=== PATIENT | female | born 1945 | race Caucasian/White ===

== ENCOUNTER 2016-09-08 09:09 | Outpatient (CLI) | payer MEDICARE, OTHER ==
[2011-05-02 06:36] VITALS: BMI 37.3
== END 2016-09-08 10:50 ==
LOC: D.MAMMO 09:09
DX: Z12.31 Encounter for screening mammogram for malignant neoplasm of breast (principal)

== ENCOUNTER → 2017-11-28 20:49 | Outpatient (CLI) | payer MEDICARE, OTHER ==
[2011-05-02 06:36] VITALS: BMI 37.3
== END | disposition home or self-care (01) ==
LOC: D.MAMMO 15:00
DX: Z12.31 Encounter for screening mammogram for malignant neoplasm of breast (principal)

== ENCOUNTER 2018-03-17 12:44 | Emergency (ER) | payer MEDICARE, OTHER ==
[2018-03-17 13:15] LABS: HEMATOCRIT 44.3 % (36.0-48.0); HEMOGLOBIN 14.5 g/dL (12-16); MCH 30.5 pg (26.0-34.0); MCHC 32.7 g/dL (31.0-37.0); MCV 93.1 fL (80.0-100.0); MEAN PLATELET VOLUME 10.6 fL (7.4-10.4); PLATELET COUNT 237 10x3/uL (130-400); RBC 4.76 10x6/uL (4.00-5.40); RDW 15.4 % (11.5-14.5); WBC 20.1 10x3/uL (4.8-10.8)
[2018-03-17 13:31] LABS: LYMPHOCYTES 15 % (15-50); MONOCYTES 5 % (2-11); NEUTROPHILS 80 % (40-80); PLATELET ESTIMATE NORMAL
[2018-03-17 13:33] LABS: ALBUMIN 3.4 g/dL (3.4-5.0); ALKALINE PHOSPHATASE 84 U/L (46-116); ALT (SGPT) 25 U/L (10-68); BILIRUBIN - TOTAL 0.55 mg/dL (0.2-1.3); CALC OSMOLALITY 283 mosm/kg (275-300); CALCIUM 8.8 mg/dL (8.5-10.1); CARBON DIOXIDE 34.4 mmol/L (21.0-32.0); CHLORIDE - SERUM 97 mmol/L (98-107); GLUCOSE 106 mg/dL (74-106); POTASSIUM - SERUM 4.1 mmol/L (3.5-5.1); PROTEIN - SERUM 7.2 g/dL (6.4-8.2); SODIUM 138 mmol/L (136-145); UREA NITROGEN 34 mg/dL (7-18); eGFR NON AFRICAN AMERICAN 57 mL/min (90-120)
[2018-03-17 13:45] LABS: CKMB 1.5 U/L (0.0-3.6); CREATINE KINASE 87 UL (21-215); PRO BNP 186 pg/mL (0-125); TROPONIN-I 0.016 ng/mL (0.000-0.060)
== END 2018-03-17 16:13 | disposition home or self-care (01) ==
LOC: D.ER 12:44
PROVIDERS: Family Medicine
DX: J20.9 Acute bronchitis, unspecified (principal); I10 Essential (primary) hypertension; R51 Headache; R07.9 Chest pain, unspecified; R05 Cough

== ENCOUNTER → 2018-05-21 17:53 | Outpatient (CLI) | payer MEDICARE, OTHER ==
[~2018-05-21 17:53] MED LIST: CALCIUM 600 +1 EAC3 PO; COZAAR100 MG PO; FISH OIL 1,0001 CA1 PO; FUROSEMIDE20 MG PO; HYDROCHLOROTHIA25 MG PO; HYDROCODON-ACE1 EA10 PO; K-TAB10 MEQ PO; LEVAQUIN750 MG PO; MOBIC7.5 MG PO; OMEPRAZOLE20 M1 PO; PROTONIX40 MG PO; PROZAC20 MG PO; VITAMIN D5000 UNIT PO; ZANAFLEX4 MG PO
[2018-05-22 09:56] VITALS: BMI 42.2
== END | disposition home or self-care (01) ==
LOC: CANPRECLI → D.OPS 17:53
DX: K21.0 Gastro-esophageal reflux disease with esophagitis (principal); R13.10 Dysphagia, unspecified; R10.9 Unspecified abdominal pain; K12.0 Recurrent oral aphthae; K29.70 Gastritis, unspecified, without bleeding

== ENCOUNTER → 2018-05-22 09:01 | Day surgery (SDC) | payer MEDICARE, OTHER ==
[~2018-05-22] VITALS: Ht 175.3 cm; Wt 129.5 kg
[2018-05-22 09:50] LABS: ANION GAP 10.8 mmol/L (8-16); CALCIUM 9.1 mg/dL (8.5-10.1); CARBON DIOXIDE 33.7 mmol/L (21.0-32.0); CREATININE - SERUM 1.1 mg/dL (0.6-1.3); POTASSIUM - SERUM 3.5 mmol/L (3.5-5.1)
[2018-05-22 09:52] LABS: HEMATOCRIT 36.9 % (36.0-48.0); MCH 29.6 pg (26.0-34.0); MCHC 32.5 g/dL (31.0-37.0); MCV 91.1 fL (80.0-100.0); MEAN PLATELET VOLUME 10.6 fL (7.4-10.4); RBC 4.05 10x6/uL (4.00-5.40); RDW 13.7 % (11.5-14.5); WBC 8.5 10x3/uL (4.8-10.8)
[2018-05-22 09:56] VITALS: BP 116/59; Ht 175.3 cm; Wt 129.5 kg
--- NOTE | 2018-05-22 11:59 | NUR ---
IV REMOVED WITH CATHALON INTACT. ALL DC INSTRUCTIONS GIVEN. VOICES UNDERSTANDING. ABLE TO EAT WITHOUT NAUSEA AND AMBULATED TO BATHROOM. FOLLOW UP APPOINTMENT GIVEN. VOICES NO OTHER NEEDS. NO S/S OF ACUTE DISTRESS NOTED. TAKEN OUT VIA W/C AND ASSISTED TO CAR WITH FAMILY. ADVISED TO CALL OR COME BACK IF ANY PROBLEMS.
--- NOTE | 2018-05-29 09:41 | OP ---
PATIENT NAME: RICHARD SOUZA MEDICAL RECORD: [id number] :43 LOCATION:[facility] ADMISSION DATE: SURGEON: MALENA JEWELL DO DATE OF OPERATION: 05/22/2018 PROCEDURE: EGD with biopsies. INDICATIONS FOR PROCEDURE: GERD, dysphagia, unspecified upper abdominal pain. SCOPE: Olympus video gastroscope. MEDICATIONS: Propofol 250 mg IV per anesthesia. ESTIMATED BLOOD LOSS: Minimal. COMPLICATIONS: None. FINDINGS AND DESCRIPTION OF PROCEDURE: Informed consent was given. The patient was made comfortable with the above medication. After reaching an adequate level of sedation by slow IV push, the patient was placed on her left side. The endoscope was advanced under direct visualization through the mouth to the second portion of the duodenum with ease. The upper, middle, and lower thirds of the esophagus appeared normal. Biopsies were taken in the middle third of the esophagus with cold forceps to submit for histopathology regarding the patient's noncardiac chest pain. At the GE junction, there was very mild evidence of LA class A reflux-induced esophagitis. The endoscope was advanced beyond the GE junction into the stomach and retroflexed to view the cardia, where a patulous lower esophageal sphincter was noted. The fundus and proximal body of the stomach appeared normal. As you approached the distal body as well as the antrum and prepyloric regions, there were patchy areas of erythema and granularity consistent with gastritis. Random cold forceps biopsies were taken to submit for histopathology and to rule out the presence of H. pylori. The endoscope was advanced beyond the pylorus into the duodenum. The duodenum appeared normal down to the second portion. The endoscope was withdrawn from the patient. The patient tolerated the procedure well and there were no complications. IMPRESSION: 1. LA class A reflux-induced esophagitis. 2. Patulous GE junction, which is likely contributing to the patient's continued reflux. 3. Patchy gastritis. PLAN AND RECOMMENDATIONS: 1. Discharge home when recovery parameters are met. 2. Follow up biopsy specimen results. 3. GERD diet and reflux precautions. 4. Continue current medications including Protonix 40 mg daily. 5. Follow up in GI clinic in approximately 3 weeks. If the patient is continuing to experience chest pain, consider barium esophagram and/or esophageal manometry to rule out esophageal spasms or hypertensive conditions involving the esophagus such as jackhammer or nutcracker esophagus. TRANSINT:[id number] Voice Confirmation ID: [id number] DOCUMENT ID: [id number] OPERATIVE REPORT [id number] RICHARD SOUZA,MALENA Verdin DO at 0941 CC: [id number] DICTATION DATE: 05/22/18 1046 SHIRRING TENDER: 05/22/18 1329 [facility] 05/22/18 [place] [id number]
== END | disposition home or self-care (01) ==
LOC: D.OPS 09:01
PROVIDERS: Anesthesiology
DX: K29.50 Unspecified chronic gastritis without bleeding (principal); K21.0 Gastro-esophageal reflux disease with esophagitis; Z01.812 Encounter for preprocedural laboratory examination

== ENCOUNTER 2018-08-19 12:03 | Inpatient (IN) | payer MEDICARE, OTHER ==
[~2018-08-19] VITALS: Ht 175.3 cm; Wt 141.8 kg
--- NOTE | ~2018-08-19 | HEMODYNAMI ---
PATIENT:RICHARD SOUZA MEDICAL RECORD: [id number] : 43 [id number] ADMISSION DATE: 08/19/18 Generatedon:08/20/201810:43 Patient name: RICHARD SOUZA Patient #: [id number] SSN: : 1945 Date of study: 08/20/2018 Page: Of Hemodynamic Procedure Report Patient Data Patient Demographics Procedure consent was obtained First Name: RICHARD Gender: Female Last Name: LIBBY : 1945 Middle Initial: A Age: 73 year(s) Patient #: [id number] Race: Unknown Additional ID: [id number] Contact details Address: [address] [place] [address] State: [place] City: [place] Zip code: [address] Admission Admission Data Admission Date: 08/19/2018 Admission Time: 13:51 Arrival Date: 08/20/2018 Arrival Time: 13:51 Admit Source: Emergency Insurance Payor: Medicare department Room #: D.2116 Height (in.): 68.9 BSA: 2.36 (m2) Height (cm.): 175 BMI: 40.82 (kg/m2) Weight (lbs.): 275.58 Weight (kg.): 125 Lab Results Lab Result Date: 08/20/2018 Lab Result Time: 0:00 Biochemistry Name Units Result Min Max BUN mg/dl 25 --(----)-* 7 18 Creatinine mg/dl 1.3 --(---*)-- 0.6 1.3 CBC Name Units Result Min Max Hemoglobin g/dl 12.7 -*(----)-- 13.5 17.5 Procedure Procedure Types Cath Procedure Diagnostic Procedure [facility] w/Coronaries Peripheral Cath Diagnostic Procedure Commercial Cleaner Peripheral Procedures Four Vessel Arteriogram Procedure Description Procedure Date Procedure Date: 08/20/2018 Procedure Start Time: 10:31 Procedure End Time: 10:42 Procedure Staff Name Function Yovany Faria MD Performing Physician Fatoumata PHILLIPS Monitor Leonid Hodges RN Nurse Afshin Hurd RT Scrub Mahendra Chao RN Licensed Loan Officer Procedure Data Cath Procedure Fluoroscopy Diagnostic fluoroscopy Total fluoroscopy Time: 1.8 time: 1.8 min min Diagnostic fluoroscopy Total fluoroscopy dose: 485 dose: 485 mGy mGy Contrast Material Contrast Material Type Amount (ml) Isovue 300 78 Entry Location Entry Primary Successful Side Size Upsize Upsize Entry Closure Succes sful Closure Location (Fr) 1 (Fr) 2 (Fr) Remarks Device Remarks Femoral Right 5 Fr Exoseal artery Estimated blood loss: 5 ml Diagnostic catheters Device Type Used For End Catheter Placement MULTIPACK JL 4.0 5Fr Left Coronary catheter Angiography MULTIPACK 3DRC 5Fr Right Coronary catheter Angiography MULTIPACK Pigtail 5 Fr Multi-vessel catheter Angiography Procedure Complications No complications Procedure Medications Medication Administration Route Dosage Oxygen etCO2 Nasal cannula 2 l/min Lidocaine 2% added to field 20 Heparin Flush Bag added to field 2 bags (1000units/500ml NS) 0.9% NaCl I.V. 100 ml/hr Versed I.V. 1 mg Fentanyl I.V. 50 mcg Versed I.V. 1 mg Fentanyl I.V. 50 mcg Versed I.V. 1 mg Fentanyl I.V. 50 mcg Hemodynamics Rest BSA: 2.36 (m2) HGB: 12.7 (g/dl) O2 Consumption: Estimated: 225.65 (ml/min) O2 Co nsumption indexed: Estimated:95.61 (ml/min/m) Heart Rate: 82 (bpm) Pressure Samples Time Site Value (mmHg) Purpose Heart Use Rate(bpm) 10:37 LV 150/20,24 Snapshot 76 Gradients Valve Time Site Site Mean SEP/DFP Peak To Heart Use 1 2 (mmHg) (sec/min) Peak Rate (mmHg) (bpm) Aortic 10:37 LV AO 76 Snapshots Pre Cath Intra NCS Post Cath Vital Signs Time Heart Resp SPO2 etCO2 NIBP (mmHg) Rhythm Pain Sedation Rate (ipm) (%) (mmHg) Status Level (bpm) 10:09:09 79 24 93 0 173/91(133) NSR 0 (11) 10(A) , No pain 10:13:24 75 12 93 29.2 171/85(113) NSR 0 (11) 10(A) , No pain 10:17:40 69 14 99 3.7 154/86(130) NSR 0 (11) 10(A) , No pain 10:21:52 68 19 100 3 167/81(112) NSR 0 (11) 10(A) , No pain 10:26:10 70 13 100 1.5 145/75(119) NSR 0 (11) 10(A) , No pain 10:30:20 68 11 95 8.2 138/78(99) NSR 0 (11) 9(A) , No pain 10:34:24 77 14 94 1.5 128/91(104) NSR 0 (11) 9(A) , No pain 10:39:21 78 12 98 9.7 169/89(122) NSR 0 (11) 10(A) , No pain Medications Time Medication Route Dose Verified Delivered Reason Notes Eff ectiveness by by 10:13:43 Oxygen etCO2 2 Yovany Buffie used for Nasal l/min [facility] drupal architect cannula 10:15:40 Lidocaine 2% added 20ml Yovany Yovany for local to vial [facility] anesthetic field MD ADLER 10:15:47 Heparin Flush added 2 Yovany Yovany used for Bag to bags [facility] procedure (1000units/500ml field MD ADLER NS) 10:16:16 0.9% NaCl I.V. 100 Yovany Buffie Per ml/hr Bienvenido Chao RN physician 10:22:54 Versed I.V. 1 mg Yovany Buffie for Bienvenido Chao RN sedation 10:23:00 Fentanyl I.V. 50 Yovany Buffie for mcg Bienvenido Chao RN sedation 10:26:55 Versed I.V. 1 mg Yovany Buffie for Bienvenido Chao RN sedation 10:26:59 Fentanyl I.V. 50 Yovany Buffie for mcg Bienvenido Chao RN sedation 10:30:30 Versed I.V. 1 mg Yovany Buffie for Bienvenido Chao RN sedation 10:30:35 Fentanyl I.V. 50 Yovany Buffie for mcg Bienvenido Chao RN sedation Procedure Log Time Note 9:35:42 Afshin Hurd RT(R) sent for patient. Start room use. 9:41:43 Time tracking: Regular hours (M-F 7:00 - 5:00) 9:41:47 Plan of Care:Hemodynamics will remain stable., Cardiac rhythm will remain stable., Comfort level will be maintained., Respiratory function will remain adequate., Patient/ family verbilizes understanding of procedure., Procedure tolerated without complication., Recovers from procedure without complications.. 9:59:39 Patient received from Med II to CCL 2 Alert and oriented. Tansferred to table in Supine position. 9:59:40 Warm blankets applied, and willem hugger turned on for patient comfort. 9:59:41 Correct patient and procedure confirmed by team. 9:59:42 Signed procedure consent form obtained from patient. 10:08:03 ECG and BP/O2 sat monitors applied to patient. 10:08:05 Baseline sample Acquired. 10:08:05 Vital chart was started 10:08:09 Rhythm: sinus rhythm 10:08:11 Full Disclosure recording started 10:08:16 Pre-procedure instructions explained to patient. 10:08:17 Pre-op teaching completed and patient verbalized understanding. 10:08:24 Family in patients room. 10:08:27 Patient NPO since Midnight. 10:08:58 H&P Date Dictated: 08/20/2018 New H&P dictated by physician.. 10:09:01 Is the patient allergic to Iodine/contrast media? No. 10:09:02 Was the patient premedicated? No 10:09:03 Is patient on blood thinner?No 10:09:04 Patient diabetic? No. 10:09:07 Previous problem with sedation/anesthesia? No ? 10:09:09 Snore? No 10:09:12 Sleep apnea? No 10:09:13 Deviated septum? No 10:09:14 Opens mouth fully? Yes 10:09:15 Sticks out tongue? Yes 10:09:16 Airway obstruction? No ? 10:09:18 Dentures? No ? 10:09:22 Pre procedure: right dorsailis pedis pulse 2+ Normal; easily identifiable; not easily obliterated 10:09:24 Pre procedure: left dorsailis pedis pulse 2+ Normal; easily identifiable; not easily obliterated 10:09:25 Patient pain scale 0/10 ?. 10:09:31 IV patent on arrival in left forearm with 0.9% NaCl at [facility]. 10:09:32 Lab results completed and on chart. 10:09:37 Right groin area was prepped with chlora-prep and draped in sterile fashion 10::38 Alarms reviewed by R. N. ::38 Sharps counted by scrub and verified by R.N. 10::43 Lab Result : Hemoglobin 12.7 g/dl 10::43 Lab Result : Creatinine 1.3 mg/dl 10::43 Lab Result : BUN 25 mg/dl 10:11:52 Admit Source: Emergency department 10:12:01 Patient Height : 68.9 inches 10:12:07 Patient Weight : 275.58 lbs 10:12:30 Insurance Payor : Medicare 10:12:32 Arrival Date: 08/20/2018 1:51:00 PM 10:13:43 Oxygen 2 l/min etCO2 Nasal cannula was administered by Mahendra Chao RN; used for procedure; 10:15:40 Lidocaine 2% 20ml vial added to field was administered by Yovany Faria MD; for local anesthetic; 10:15:47 Heparin Flush Bag (1000units/500ml NS) 2 bags added to field was administered by Yovany Faria MD; used for procedure; 10:16:16 0.9% NaCl 100 ml/hr I.V. was administered by Mahendra Chao RN; Per physician; 10:21:29 Physician arrived 10:21:29 --------ALL STOP TIME OUT------ 10:21:30 Final Timeout: patient, procedure, and site verified with staff and physician. All members of the team are in agreement. 10:21:32 Right groin site verified by team. 10:21:35 Maximum allowable Isovue 300 dose 300ml. Physician notified. (300ml for normal creatinines. For patients with creatinine of 1.7 or higher multiply weight(kg) x 5 divided by creatinine.) 10:21:40 Fire Safety Assessment: A--An alcohol-based skin anteseptic being used preoperatively., C--Open oxygen or nitrous oxide is being used., D--An ESU, laser, or fiber-optic light is being used. 10:21:45 Physical assessment completed. ASA score P 2 - A patient with mild systemic disease as per Yovany Faria MD. 10:21:49 Sedation plan: IV Moderate Sedation Medication:Versed, Fentanyl 10:21:53 Use device set Femoral Dx 10:21:54 ACIST Syringe (23756) opened to sterile field. 10:21:54 Bag Decanter (2002S) opened to sterile field. 10:21:55 Medline Cath Pack ([id number]) opened to sterile field. 10:21:58 DIAGNOSTIC WIRE .035 260cm J wire (421015) opened to sterile field. 10:21:59 ACIST Hand Control (21075) opened to sterile field. 10:22:00 ACIST Manifold (85663) opened to sterile field. 10:22:00 DIAGNOSTIC Multipack 5Fr catheter set (HO9920) opened to sterile field. 10:22:00 Tegaderm 4 x 4 (1626W) opened to sterile field. 10:22:01 SHEATH 5FR Tom Bean (NHH726) opened to sterile field. 10:22:54 Versed 1 mg I.V. was administered by Mahendra Chao RN; for sedation; 10:23:00 Fentanyl 50 mcg I.V. was administered by Mahendra Chao RN; for sedation; 10:23:21 Zero performed for pressure channel P1 10:26:55 Versed 1 mg I.V. was administered by Mahendra Chao RN; for sedation; 10:26:59 Fentanyl 50 mcg I.V. was administered by Mahendra Chao RN; for sedation; 10:30:30 Versed 1 mg I.V. was administered by Mahendra Chao RN; for sedation; 10:30:35 Fentanyl 50 mcg I.V. was administered by Mahendra Chao RN; for sedation; 10:31:16 Procedure started. 10:31:21 Local anesthetic to right femoral artery with Lidocaine 2% by Yovany Faria MD.INITIAL ACCESS ONLY 10:31:46 A 5 Fr sheath was inserted into the Right Femoral artery 10:32:01 A MULTIPACK JL 4.0 5Fr catheter was advanced over the wire and used for Left Coronary Angiography. 10:32:54 LCA angiography performed. 10:32:57 Injector settings: Ml/sec: 3, Volume: 69, 10:33:39 Catheter removed. 10:33:46 A MULTIPACK 3DRC 5Fr catheter was advanced over the wire and used for Right Coronary Angiography. 10:34:17 RCA angiography performed. 10:34:19 Injector settings: Ml/sec: 3, Volume: 6, 10:35:01 Bilateral carotid angiography performed. 10:35:29 Injector settings: Ml/sec: 4, Volume: 8, 10:37:11 Catheter removed. 10:37:15 A MULTIPACK Pigtail 5 Fr catheter was advanced over the wire and used for Multi-vessel Angiography. 10:37:39 LV hemodynamics recorded. 10:37:56 EF : 55 % 10:37:58 Catheter removed. 10:38:00 EXOSEAL 5Fr (EX500) opened to sterile field. 10:38:07 Sheath removed intact; hemostasis achieved with Exoseal to the Right Femoral artery. 10:38:56 Procedure ended.(Physican Out) 10:39:33 Fluoroscopy time 01.80 minutes. 10:39:37 Fluoroscopy dose: 485 mGy 10:39:37 Flurop Dose total: 485 10:39:43 Contrast amount:Isovue 300 78ml. 10:41:40 Sharps counted by scrub and verified by R.N. 10:41:42 Insertion/operative site no bleeding no hematoma. 10:41:45 Post-op/insertion site Right Femoral artery dressed using a 4 x 4 and Tegaderm. 10:41:50 Post procedure rhythm: unchanged. 10:41:52 Estimated blood loss: 5 ml 10:41:54 Post procedure instruction explained to patient.Patient verbalizes understanding. 10:41:54 Patient needs reinforcement of post procedure teaching. 10:42:11 Procedure and supply charges have been captured, reviewed, submitted and are correct. 10:42:17 Procedure Complication : No complications 10:42:19 Vital chart was stopped 10:42:19 See physician's report for complete and final results. 10:42:[address] [facility] II. 10:42:24 Patient transfered to Med II with Stretcher. 10:42:26 Procedure ended. 10:42:26 Full Disclosure recording stopped 10:42:30 End room use (Document Last) Device Usage Item Name Manufacture Quantity Catalog Hospital Part Current Minimal L ot# / Number Charge Number Stock Stock Serial# Code ACIST Acist 1 07958 937441 658127 119799 20 Syringe NexWave Solutions (44410) Systems Inc Bag Microtek 1 278506 11778 458290 5 Decanter Medical Inc. () Medline Medline 1 [id number] 074409 79794 729781 5 Cath Pack ([id number]) DIAGNOSTIC St Anjum 1 854152 444871 147292 598112 30 WIRE .035 260cm J wire (704187) ACIST Hand Acist 1 10034 836541 683247 715890 5 Control Medical (85766) Systems Inc ACIST Acist 1 89953 804658 749410 792982 5 Manifold Medical (87629) Systems Inc DIAGNOSTIC Cardinal 1 DG9290 436199 38089 553812 30 Multipack Health 5Fr catheter set ([id number]) Tegaderm 4 3M 1 1626W 888024 977018 829178 5 x 4 (1626W) SHEATH 5FR Terumo 1 EXO591 792605 876049 903347 5 Tom Bean (WCV249) MULTIPACK Cardinal 1 107782 5 JL 4.0 5Fr Health catheter MULTIPACK Cardinal 1 308074 5 3DRC 5Fr Health catheter MULTIPACK Cardinal 1 035911 5 Pigtail 5 Health Fr catheter EXOSEAL 5Fr Cardinal 1 EX500 785832 540080 463861 10 (EX500) Health Signature Audit [place] Stage Time Signature Unsigned Intra-Procedure 08/20/2018 Fatoumata Salmeron 10:43:30 AM RT(R) Signatures Monitor : Fatoumata Salmeron RT Signature : Date : Time : [address] [address]
--- NOTE | 2018-08-19 12:18 | NUR ---
[facility] WHERE PATIENT WAS BEING SEEN FOR LEFT EYE PAIN, CONJUNCTIVITIS. REPORTS SHE BEGAN HAVING CHEST PAIN AROUND 0430 THIS MORNING, SENT TO ED FOR ELEVATED TROPONIN. CM, BPM, AND PULSE OX MONITOR PLACED ON PATIENT AT TIME OF ARRIVAL TO ROOM. PT ALERT AND ORIENTED X 4, SPEECH CLEAR, NO ACUTE DISTRESS NOTED AT THIS TIME. PT'S FAMILY PRESENT AT BEDSIDE. WILL CONTINUE TO MONITOR FOR CHANGES.
[2018-08-19 12:42] LABS: HEMATOCRIT 38.4 % (36.0-48.0); HEMOGLOBIN 12.7 g/dL (12-16); LYMPHOCYTES 24.4 % (15-50); MCH 29.1 pg (26.0-34.0); MCHC 33.1 g/dL (31.0-37.0); MCV 88.1 fL (80.0-100.0); MEAN PLATELET VOLUME 9.9 fL (7.4-10.4); NEUTROPHILS 68.1 % (40-80); RBC 4.36 10x6/uL (4.00-5.40); RDW 14.8 % (11.5-14.5); WBC 9.5 10x3/uL (4.8-10.8)
[2018-08-19 12:46] LABS: PLATELET COUNT 193 10x3/uL (130-400)
[2018-08-19 12:58] LABS: ALBUMIN 3.9 g/dL (3.4-5.0); ALKALINE PHOSPHATASE 70 U/L (46-116); ALT (SGPT) 17 U/L (10-68); BILIRUBIN - TOTAL 0.53 mg/dL (0.2-1.3); CALC OSMOLALITY 282 mosm/kg (275-300); CALCIUM 9.5 mg/dL (8.5-10.1); CARBON DIOXIDE 27.4 mmol/L (21.0-32.0); CHLORIDE - SERUM 100 mmol/L (98-107); CREATININE - SERUM 1.3 mg/dL (0.6-1.3); GLUCOSE 101 mg/dL (74-106); POTASSIUM - SERUM 4.1 mmol/L (3.5-5.1); PROTEIN - SERUM 7.2 g/dL (6.4-8.2); SODIUM 140 mmol/L (136-145); UREA NITROGEN 25 mg/dL (7-18); eGFR NON AFRICAN AMERICAN 42 mL/min (90-120)
[2018-08-19 13:13] LABS: CKMB 1.6 U/L (0.0-3.6); CREATINE KINASE 71 UL (21-215); MAGNESIUM - SERUM 2.1 mg/dL (1.8-2.4); PRO BNP 722 pg/mL (0-125)
[2018-08-19 13:16] LABS: TROPONIN-I 0.613 ng/mL (0.000-0.060)
[2018-08-19 13:25] VITALS: BP 132/60
[2018-08-19 16:00] VITALS: BP 134/72
[2018-08-19 17:00] VITALS: BP 130/69
--- NOTE | 2018-08-19 17:13 | NUR ---
REPORT CALLED TO JULIETA FAIRCHILD AT THIS TIME. WAS INFORMED THAT THE ROOM WAS NOT CLEAN AND PATIENT WAS NOT ABLE TO BE BROUGHT TO MED 2 AT THIS TIME. JULIETA FAIRCHILD REPORTS SHE WAS CALL WHENEVER ROOM WAS AVAILABLE. PT IN NO ACUTE DISTRESS AT THIS TIME, VSS. WILL CONTINUE TO MONITOR FOR CHANGES. Y
[2018-08-19 17:14] LABS: CKMB 1.9 U/L (0.0-3.6); CREATINE KINASE 70 UL (21-215); TROPONIN-I 0.881 ng/mL (0.000-0.060)
[2018-08-19] MEDS ORDERED: BENTYL10 MG PO (18:13)
[2018-08-19] MEDS ORDERED: GAS-X125 M1 PO (18:15)
[2018-08-19] MEDS ORDERED: MAG-OX 400 MG400 MG PO (18:16)
--- NOTE | 2018-08-19 19:42 | NUR ---
RESUMING PATIENT CARE. PATIENT IS ALERT AND ORIENTED. RESPIRATIONS ARE EVEN AND UNLABORED. NO S/S OF DISTRESS. NO C/O PAIN. DENIES NEEDS. FAMILY AT BEDSIDE. CALL LIGHT WITHIN REACH. WILL CPOC.
[2018-08-19 20:00] VITALS: BP 146/91
[2018-08-19 23:44] LABS: CKMB 1.7 U/L (0.0-3.6); CREATINE KINASE 79 UL (21-215)
[2018-08-19 23:50] LABS: TROPONIN-I 0.776 ng/mL (0.000-0.060)
[2018-08-20] VITALS: BP 134/72
[2018-08-20 04:00] VITALS: BP 141/79
[2018-08-20 06:56] LABS: ANION GAP 11.7 mmol/L (8-16); CALCIUM 8.7 mg/dL (8.5-10.1); CARBON DIOXIDE 29.4 mmol/L (21.0-32.0); CHOL - HDL RATIO 4.3 ratio (2.3-4.1); CREATININE - SERUM 1.2 mg/dL (0.6-1.3); LDL-HDL RATIO 2.8 ratio (1.5-3.5); POTASSIUM - SERUM 4.1 mmol/L (3.5-5.1)
[2018-08-20 07:36] LABS: BASOPHILS 0.4 % (0-2); EOSINOPHILS 2.8 % (0-7); HEMATOCRIT 36.2 % (36.0-48.0); IMMATURE GRANULOCYTES 0.3 % (0-5); LYMPHOCYTES 36.9 % (15-50); MCH 29.2 pg (26.0-34.0); MCHC 33.1 g/dL (31.0-37.0); MCV 88.1 fL (80.0-100.0); MEAN PLATELET VOLUME 11.4 fL (7.4-10.4); MONOCYTES 9.2 % (2-11); NEUTROPHILS 50.4 % (40-80); PLATELET COUNT 186 10x3/uL (130-400); RBC 4.11 10x6/uL (4.00-5.40); RDW 15.1 % (11.5-14.5); WBC 9.2 10x3/uL (4.8-10.8)
[2018-08-20 08:00] VITALS: BP 139/75
[2018-08-20 12:00] VITALS: BP 142/72
--- NOTE | 2018-08-20 12:26 | OP ---
PATIENT NAME: RICHARD SOUZA MEDICAL RECORD: [id number] :43 LOCATION:D.M2 D.2116 ADMISSION DATE:08/19/18 SURGEON: CHRISTIANO TOLENTINO MD DATE OF OPERATION: 08/20/2018 PROCEDURE: Left heart catheterization, selective coronary angiography, plus 4-vessel arteriography, right femoral artery approach. CATHETERS: A 5-Nepali sheath, 5/4 left and right Sonia, 5/4 pig. The procedure was well tolerated. The patient returned to white, sheath removed. ExoSeal device placed. FINDINGS: Left ventriculography in 30-degree RUFFIN view: Normal wall motion, normal systolic function. No focal wall motion abnormality is noted. CORONARY ANATOMY: LEFT MAIN: Left main is smooth-walled vessel, free of disease. LAD: Smooth-walled vessel, free of disease. CIRCUMFLEX: Smooth-walled vessel, free of disease. RIGHT CORONARY ARTERY: Smooth-walled vessel, free of disease. FOUR-VESSEL ARTERIOGRAPHY: Four-vessel arteriography was performed secondary to amaurosis fugax type symptomatology in conjunction with slow healing pathology. RIGHT: 1. Right common carotid was selectively engaged, is a smooth-walled vessel, free of disease. 2. Right internal carotid is smooth-walled vessel, free of disease. 3. Right external carotid is smooth-walled, free of disease. LEFT: 1. Left common carotid was selectively engaged, is a smooth-walled vessel, free of disease. 2. Left internal carotid artery is a smooth-walled vessel, free of disease. 3. Left external carotid is a smooth-walled vessel, free of disease. IMPRESSION: Negative 4-vessel arteriography, no evidence of flow obstructive coronary artery disease, normal left ventricular function. TRANSINT:[id number] Voice Confirmation ID: [id number] DOCUMENT ID: [id number] CHRISTIANO TOLENTINO MD at 1226 CC: [id number] DICTATION DATE: 08/20/18 1045 NET SOFTWARE DEVELOPER: 08/20/18 1136 [place] [address]
[2018-08-20 16:37] VITALS: BP 139/78
--- NOTE | 2018-08-20 19:44 | NUR ---
RESUMING PATIENT CARE. PATIENT IS ALERT AND ORIENTED, RESTING COMFORTABLY IN BED. RESPIRATIONS ARE EVEN AND UNLABORED. NO S/S OF DISTRESS. NO C/O PAIN. CALL LIGHT WITHIN REACH. WILL CPOC.
[2018-08-20 20:00] VITALS: BP 127/59
[2018-08-21 00:18] VITALS: BP 124/70
[2018-08-21 04:34] VITALS: BP 114/55
[2018-08-21 06:51] LABS: BASOPHILS 0.5 % (0-2); EOSINOPHILS 2.7 % (0-7); HEMATOCRIT 35.2 % (36.0-48.0); HEMOGLOBIN 11.2 g/dL (12-16); IMMATURE GRANULOCYTES 0.1 % (0-5); LYMPHOCYTES 30.2 % (15-50); MCH 28.6 pg (26.0-34.0); MCHC 31.8 g/dL (31.0-37.0); MCV 89.8 fL (80.0-100.0); MEAN PLATELET VOLUME 10.5 fL (7.4-10.4); MONOCYTES 10.1 % (2-11); NEUTROPHILS 56.4 % (40-80); PLATELET COUNT 186 10x3/uL (130-400); RBC 3.92 10x6/uL (4.00-5.40); RDW 15.2 % (11.5-14.5); WBC 8.5 10x3/uL (4.8-10.8)
[2018-08-21 07:30] LABS: ALBUMIN 3.3 g/dL (3.4-5.0); ANION GAP 10.7 mmol/L (8-16); BILIRUBIN - TOTAL 0.41 mg/dL (0.2-1.3); CARBON DIOXIDE 29.1 mmol/L (21.0-32.0); CREATININE - SERUM 1.2 mg/dL (0.6-1.3); POTASSIUM - SERUM 3.8 mmol/L (3.5-5.1); PROTEIN - SERUM 6.6 g/dL (6.4-8.2)
[2018-08-21 07:41] VITALS: BP 139/71
--- NOTE | 2018-08-21 07:51 | NUR ---
LEAVING FOR CTA BY W/C. WILL CONT. PLAN OF CARE.
[2018-08-21 08:55] LABS: ERYTHROCYTE SEDIMENTATION RATE 10 mm/hr (0-30)
[2018-08-21 08:57] LABS: APTT 20.6 SECONDS (22.8-39.4)
[2018-08-21 08:58] LABS: INR 1.12 (0.85-1.17); PROTIME 13.9 SECONDS (11.6-15.0)
--- NOTE | 2018-08-21 09:05 | NUR ---
LAB CALLED WITH CR D-DIMER. DR ASHBY CALLED WITH POS PE. NEW ORDERS GIVEN. WILL CONT. PLAN OF CARE.
[2018-08-21 09:18] VITALS: BMI 45.9
[2018-08-21 11:36] VITALS: BP 141/71
[2018-08-21 15:28] VITALS: BP 95/46
--- NOTE | 2018-08-21 17:16 | MORECARE ---
CASE MANAGEMENT DISCHARGE SUMMARY PATIENT: RICHARD SOUZA UNIT: [id number] ADM DATE: 08/21/18 AGE: 73 : 44 SEX: F ROOM/BED: D.4054 AUTHOR: PAM,DOC PHYSICIAN: REFERRING PHYSICIAN: SANKET DELGADO MD DATE OF SERVICE: 08/21/18 Discharge Plan Patient Name: RICHARD SOUZA Facility: [facility]:[place] : 1945 Planned Disposition: Home Anticipated Discharge Date: Discharge Date: Expected LOS: Initial Reviewer: [email or web address] Initial Review Date: 08/19/2018 Generated: 08/21/18 6:16 pm Comments DCP- Discharge Planning Updated by [email or web address]: Jayjay Matos on 08/21/18 4:[address] Patient Name: RICHARD SOUZA Admission Status: ER Accout number: [id number] Admission Date: 08-21-2018 : 1945 Admission Diagnosis: Attending: ORLANDO DELGADO Current LOS: 1 Anticipated DC Date: Planned Disposition: Home Primary Insurance: MEDICARE A & B Discharge Planning Comments: CM MET WITH PTAND PT'S FRIEND IN ROOM TO DISCUSS DISCHARGE PLANNING AND NEEDS. RICHARD SOUZA provided verbal consent to discuss current and ongoing needs with/in the presence of: FRIEND, LILIAM, PT'S SUNDAY DATA BASE DESIGN ANALYST. PT REPORTS LIVING AT HOME INDEPENDENTLY AND ALONE. PT HAS A CANE AND WALKER WITH BRAKES AND SEAT WITH NO MEDICAL EQUIPMENT PROVIDER PREFERNECE. PT HAS NO OUTSIDE SERVICES ASSISTING IN THE HOME. CM DISCUSSED AVAILABILITY OF HOME HEALTH, REHAB SERVICES AND MEDICAL EQUIPMENT. PT REPORTS UNKNOWN DISCHARGE NEEDS, THINKS SHE MIGHT NEED OXYGEN AT DISCHARGE. CM EXPLAINED THAT PT WILL BE TESTED IF NECESSARY AND CM WILL SET UP DAY BEFORE OR DAY OF DISCHARGE. PT REPORTS PLAN TO DISCHARGE HOME ALONE, REPORTS HER DAUGHTER WILL PICK HER UP FOR DISCHARGE HOME. PT REPORTS PLAN TO RETURN HOME ALONE AT DISCHARGE, DAUGHTER TO TRANSPORT. IF PT NEEDS OXYGEN, SHE HAS NO MEDICAL EQUIPMENT PROVIDER PREFERENCE. CM TO FOLLOW AND ASSIST IF NECESSARY. Spice Room Worker: Jayjay Matos DCPIA - Discharge Planning Initial Assessment Updated by [email or web address]: Jayjay Matos on 08/21/18 5:10 pm * Is the patient Alert and Oriented? Yes * How many steps to enter\exit or inside your home? * PCP GEORGE WARD AT DR. BOLAND'S OFFICE * [facility] [place] * Preadmission Environment Home Alone * ADLs Independent * Equipment Cane Rolling Walker * Other Equipment WALKER WITH BRAKES AND SEAT NO MEDICAL EQUIPMENT PROVIDER PREFERENCE * List name and contact numbers for known caregivers / representatives who currently or will assist patient after discharge: FLOWER GOODMAN, DTR, * Verbal permission to speak to the caregivers and representatives has been obtained from the patient. Yes * Community resources currently utilized None * Please name any agencies selected above. none * Additional services required to return to the preadmission environment? No * Can the patient safely return to the preadmission environment? Yes * Has this patient been hospitalized within the prior 30 days at any hospital? No Patient Name: RICHARD SOUZA Page [phone] at 1716 All edits/amendments must be made on the electronic document DICTATION DATE: 08/21/181714 CERTIFIED REGISTERED NURSE PRACTITIONER: ETTA 08/21/181714 RPT#: [id number] DC DATE: STATUS: ADM IN [facility] [address] [place] [address] END OF REPORT
--- NOTE | 2018-08-21 19:45 | NUR ---
RESUMING PATIENT CARE. PATIENT IS ALERT AND ORIENTED. RESTING COMFORTABLY IN BED. RESPIRATIONS ARE EVEN AND UNLABORED. NO S/S OF DISTRESS. NO C/O PAIN. DENIES NEEDS. FAMILY AT BEDSIDE. CALL LIGHT WITHIN REACH. WILL CPOC.
[2018-08-21 20:00] VITALS: BP 129/59
[2018-08-22 00:03] VITALS: BP 119/61
[2018-08-22 04:00] VITALS: BP 115/56
[2018-08-22 05:53] LABS: BASOPHILS 0.4 % (0-2); HEMATOCRIT 33.2 % (36.0-48.0); HEMOGLOBIN 10.5 g/dL (12-16); IMMATURE GRANULOCYTES 0.3 % (0-5); LYMPHOCYTES 32.5 % (15-50); MCH 28.1 pg (26.0-34.0); MCHC 31.6 g/dL (31.0-37.0); MCV 88.8 fL (80.0-100.0); MONOCYTES 7.8 % (2-11); PLATELET COUNT 176 10x3/uL (130-400); RBC 3.74 10x6/uL (4.00-5.40); RDW 15.1 % (11.5-14.5); WBC 9.3 10x3/uL (4.8-10.8)
[2018-08-22 06:12] LABS: ALBUMIN 3.2 g/dL (3.4-5.0); ANION GAP 12.1 mmol/L (8-16); BILIRUBIN - TOTAL 0.46 mg/dL (0.2-1.3); CALCIUM 8.7 mg/dL (8.5-10.1); CARBON DIOXIDE 29.5 mmol/L (21.0-32.0); CREATININE - SERUM 1.4 mg/dL (0.6-1.3); POTASSIUM - SERUM 3.6 mmol/L (3.5-5.1)
[2018-08-22 09:37] VITALS: BP 106/63
--- NOTE | 2018-08-22 11:57 | NUR ---
Nutrition follow-up: Diet: low soidum PO intake 75,75,25% of meals 08/21/18 Labs reviewed Wt: 313# PO intake good at most meals RDN following.
[2018-08-22 12:25] VITALS: BP 128/62
--- NOTE | 2018-08-22 13:00 | NUR ---
20 GUAGE PIV INSERTED TO R.FA X1 STICK, HEPARIN INFUSING VIA R.FA. NO CURRENT NEEDS.
[2018-08-22 15:12] LABS: ACLA - IGG AB <9 GPL U/mL (0-14); ACLA - IGM AB <9 MPL U/mL (0-12)
[2018-08-22 18:07] LABS: ANA REFLEX - DIRECT Negative (Negative)
--- NOTE | 2018-08-22 19:33 | NUR ---
RESUMING PATIENT CARE. PATIENT ALERT AND ORIENTED. RESTING COMFORTABLY IN BED. RESPIRATIONS ARE EVEN AND UNLABORED. CALL LIGHT WITHIN REACH. WILL CPOC.
[2018-08-22 20:00] VITALS: BP 150/76
[2018-08-23] VITALS: BP 120/70
[2018-08-23 04:00] VITALS: BP 105/55
[2018-08-23 04:09] LABS: PROTEIN S - FREE 110 % (57-157); PROTEIN S - FREE 114 % (57-157); PROTEIN S - FUNCTIONAL 98 % (63-140); PROTEIN S - TOTAL 88 % (60-150); PROTEIN S - TOTAL 92 % (60-150)
[2018-08-23 06:27] LABS: BASOPHILS 0.3 % (0-2); EOSINOPHILS 3.3 % (0-7); HEMATOCRIT 32.3 % (36.0-48.0); HEMOGLOBIN 10.5 g/dL (12-16); IMMATURE GRANULOCYTES 0.4 % (0-5); LYMPHOCYTES 34.6 % (15-50); MCH 28.9 pg (26.0-34.0); MCHC 32.5 g/dL (31.0-37.0); MEAN PLATELET VOLUME 10.5 fL (7.4-10.4); NEUTROPHILS 54.4 % (40-80); PLATELET COUNT 176 10x3/uL (130-400); RBC 3.63 10x6/uL (4.00-5.40); RDW 15.1 % (11.5-14.5); WBC 9.2 10x3/uL (4.8-10.8)
[2018-08-23 06:51] LABS: ANION GAP 11.4 mmol/L (8-16); BILIRUBIN - TOTAL 0.49 mg/dL (0.2-1.3); CALCIUM 8.5 mg/dL (8.5-10.1); CARBON DIOXIDE 29.1 mmol/L (21.0-32.0); CREATININE - SERUM 1.2 mg/dL (0.6-1.3); POTASSIUM - SERUM 3.5 mmol/L (3.5-5.1)
[2018-08-23 07:46] VITALS: BP 128/56
--- NOTE | 2018-08-23 09:20 | NUR ---
TELEMETRY SB. RESP UL ON 02 2L NC. HEPRIN GTT DCD ORDERED. ELIQUIS STARTED. CALL LIGHT IN REACH. WILL CONT. PLAN OF CARE.
[2018-08-23 09:35] VITALS: Ht 175.3 cm; Wt 141.8 kg
[2018-08-23 11:33] VITALS: BP 124/52
[2018-08-23 15:10] VITALS: BP 121/67
[2018-08-23 15:12] LABS: LUPUS - INTERPRETATION Comment: (()); LUPUS - THROMBIN NEUT 21.3 sec (0.0-23.0); LUPUS - THROMBIN TIME >150.0 sec (0.0-23.0); LUPUS - THROMBIN TIME MIX 127.1 sec (0.0-23.0); LUPUS - dRVVT 40.8 sec (0.0-47.0)
--- NOTE | 2018-08-23 17:19 | MORECARE ---
CASE MANAGEMENT DISCHARGE SUMMARY PATIENT: RICHARD SOUZA UNIT: [id number] ADM DATE: 08/21/18 AGE: 73 : 44 SEX: F ROOM/BED: D.2116 AUTHOR: PAM,DOC PHYSICIAN: REFERRING PHYSICIAN: SANKET DELGADO MD DATE OF SERVICE: 08/23/18 Discharge Plan Patient Name: RICHARD SOUZA Facility: [facility]:[place] : 1945 Planned Disposition: Home Anticipated Discharge Date: Discharge Date: Expected LOS: Initial Reviewer: [id number] Initial Review Date: 08/19/2018 Generated: 08/23/18 6:19 pm Comments DCP- Discharge Planning Updated by [id number]: Jayjay Matos on 08/23/18 4:[address] Patient Name: RICHARD SOUZA Encounter No: [id number] : 1945 Primary Insurance: MEDICARE A & B Anticipated DC Date: Planned Disposition: Home DCP follow-up note: CM RECEIVED REQUEST TO SEE PT IN ROOM 2115, MET WITH PT AND DAUGHTER JENNA GOODMAN. PT PROVIDED PERMISSION TO TALK ABOUT HER CARE AND DISCHARGE PLANNING WITH JENNA REPORTING JENNA TO BE PT'S POWER OF CIRCUS TRAIN SUPERVISOR IF NEEDED. PT WANTS TO LET HER CHOICE FOR MEDICAL EQUIPMENT BE KNOWN IF SHE NEEDS OXYGEN AND PROVIDED CHOICE OF [facility] [place], [facility] [place], [place] [phone]. PT WILL NEED OXYGEN TESTING WITHIN 48 HOURS OF DISCHARGE HOME. IF PT NEEDS HOME OXYGEN, CM TO ARRANGE WITH [facility] IN [place]. CM TO FOLLOW AND ASSIST NEEDED. Jayjay Matos, CASE MANAGEMENT DCP- Discharge Planning Updated by [id number]: Jayjay Matos on 08/21/18 4:[address] Patient Name: RICHARD SOUZA Admission Status: ER Accout number: [id number] Admission Date: 08-21-2018 : 1945 Admission Diagnosis: Attending: ORLANDO DELGADO Current LOS: 1 Anticipated DC Date: Planned Disposition: Home Primary Insurance: MEDICARE A & B Discharge Planning Comments: CM MET WITH PTAND PT'S FRIEND IN ROOM TO DISCUSS DISCHARGE PLANNING AND NEEDS. RICHARD SOUZA provided verbal consent to discuss current and ongoing needs with/in the presence of: FRIEND, LILIAM, PT'S SUNDAY SECURITY SHIFT SUPERVISOR. PT REPORTS LIVING AT HOME INDEPENDENTLY AND ALONE. PT HAS A CANE AND WALKER WITH BRAKES AND SEAT WITH NO MEDICAL EQUIPMENT PROVIDER PREFERNECE. PT HAS NO OUTSIDE SERVICES ASSISTING IN THE HOME. CM DISCUSSED AVAILABILITY OF HOME HEALTH, REHAB SERVICES AND MEDICAL EQUIPMENT. PT REPORTS UNKNOWN DISCHARGE NEEDS, THINKS SHE MIGHT NEED OXYGEN AT DISCHARGE. CM EXPLAINED THAT PT WILL BE TESTED IF NECESSARY AND CM WILL SET UP DAY BEFORE OR DAY OF DISCHARGE. PT REPORTS PLAN TO DISCHARGE HOME ALONE, REPORTS HER DAUGHTER WILL PICK HER UP FOR DISCHARGE HOME. PT REPORTS PLAN TO RETURN HOME ALONE AT DISCHARGE, DAUGHTER TO TRANSPORT. IF PT NEEDS OXYGEN, SHE HAS NO MEDICAL EQUIPMENT PROVIDER PREFERENCE. CM TO FOLLOW AND ASSIST IF NECESSARY. Sanding Machine Tender: Jayjay Matos ORPIA - Discharge Planning Initial Assessment Updated by [id number]: Jayjay Matos on 08/21/18 5:10 pm * Is the patient Alert and Oriented? Yes * How many steps to enter\exit or inside your home? * PCP GEORGE WARD AT DR. BOLAND'S OFFICE * Pharmacy [facility] IN [place] * Preadmission Environment Home Alone * ADLs Independent * Equipment Cane Rolling Walker * Other Equipment WALKER WITH BRAKES AND SEAT NO MEDICAL EQUIPMENT PROVIDER PREFERENCE * List name and contact numbers for known caregivers / representatives who currently or will assist patient after discharge: FLOWER GOODMAN, DTR, * Verbal permission to speak to the caregivers and representatives has been obtained from the patient. Yes * Community resources currently utilized None * Please name any agencies selected above. none * Additional services required to return to the preadmission environment? No * Can the patient safely return to the preadmission environment? Yes * Has this patient been hospitalized within the prior 30 days at any hospital? No Coverage Notice Reviewer: [id number] Balaji Matos Notice Issued Date-Time: 08/23/2018 14:40 Notice Type: IM Discharge Notice Notice Delivered To: Family Member Relationship to Patient: Daughter Athlete Manager Name: JUAN ANTONIO GOODMAN Delivery Method: HAND - Hand Delivered Lien Days: Prior Verbal Notification: Recipient Understood Notice: Yes Recipient Signature: Yes Med Rec Note Co-signed by Attending: Coverage Notice Comment: Reviewer: [id number] Matos Notice Issued Date-Time: 08/23/2018 14:40 Notice Type: Patient Choice Letter Notice Delivered To: Family Member Relationship to Patient: Daughter Athlete Manager Name: JENNA GOODMAN Delivery Method: HAND - Hand Delivered Lien Days: Prior Verbal Notification: Recipient Understood Notice: Yes Recipient Signature: Yes Med Rec Note Co-signed by Attending: Coverage Notice Comment: [facility] [place], [place] [phone] Last DP export: 08/21/18 4:16 p Patient Name: RICHARD SOUZA Page [id number] at 1719 All edits/amendments must be made on the electronic document DICTATION DATE: 08/23/181717 NURSING PROGRAM CHAIR: ETTA 08/23/181717 RPT#: [id number] DC DATE: STATUS: ADM IN [facility] [address] [place] [address] END OF REPORT
[2018-08-23 20:00] VITALS: BP 130/61
--- NOTE | 2018-08-23 20:00 | NUR ---
INITIAL ROUNDS AND ASSESSMENT COMPLETED. PAIN MEDICATION GIVEN PER PT REQUEST. OTHER BEDTIME MED GIVEN. EYE DROPS AT BEDSIDE FOR PT ADMINISTRATION. O2 @ 2L/NC IN PLACE WITH NONLABORED RESPIRATIONS. SALINE LOCK TO RFA. MONITOR AND CPOC.
[2018-08-24] VITALS: BP 106/48
[2018-08-24 04:25] VITALS: BP 128/56
[2018-08-24 04:51] LABS: BASOPHILS 0.3 % (0-2); EOSINOPHILS 3.5 % (0-7); HEMATOCRIT 30.9 % (36.0-48.0); IMMATURE GRANULOCYTES 0.5 % (0-5); LYMPHOCYTES 33.8 % (15-50); MCH 28.7 pg (26.0-34.0); MCHC 32.4 g/dL (31.0-37.0); MCV 88.5 fL (80.0-100.0); MEAN PLATELET VOLUME 10.4 fL (7.4-10.4); MONOCYTES 8.3 % (2-11); NEUTROPHILS 53.6 % (40-80); PLATELET COUNT 185 10x3/uL (130-400); RBC 3.49 10x6/uL (4.00-5.40); WBC 8.7 10x3/uL (4.8-10.8)
[2018-08-24 05:30] LABS: ALBUMIN 2.9 g/dL (3.4-5.0); ANION GAP 11.3 mmol/L (8-16); BILIRUBIN - TOTAL 0.57 mg/dL (0.2-1.3); CALCIUM 8.6 mg/dL (8.5-10.1); CARBON DIOXIDE 30.8 mmol/L (21.0-32.0); CREATININE - SERUM 1.4 mg/dL (0.6-1.3)
[2018-08-24 05:31] LABS: POTASSIUM - SERUM 4.1 mmol/L (3.5-5.1)
--- NOTE | 2018-08-24 07:30 | NUR ---
RECEIVED PT IN BED AAOX4 RESP UNLABORED DENIES ANY NEEDS AT THIS TIME
[2018-08-24 08:53] VITALS: BP 127/61
[2018-08-24 12:09] LABS: ALPHA FETOPROTEIN -(TUMOR MRK) 5.1 ng/mL (0.0-8.3); CA125 7.3 U/mL (0.0-38.1); CEA 2.8 ng/mL (0.0-4.7)
[2018-08-24 13:11] VITALS: BP 130/63
[2018-08-24 16:45] VITALS: BP 113/89
--- NOTE | 2018-08-24 19:14 | NUR ---
RECIEVED UP IN BED WITH EYES OPEN AND TV ON. ALERT AND ORIENTED X4. O2 @ 2 LITERS PER N/C. TELEMETRY IN PLACE. DENIES ANY NEEDS AT THIS TIME.
[2018-08-24 20:00] VITALS: BP 126/67
[2018-08-25 00:30] VITALS: BP 111/55
[2018-08-25 00:40] LABS: HEMATOCRIT 30.1 % (36.0-48.0); HEMOGLOBIN 9.8 g/dL (12-16); MCH 28.6 pg (26.0-34.0); MCHC 32.6 g/dL (31.0-37.0); MCV 87.8 fL (80.0-100.0); MEAN PLATELET VOLUME 10.5 fL (7.4-10.4); RBC 3.43 10x6/uL (4.00-5.40); RDW 14.8 % (11.5-14.5); WBC 9.8 10x3/uL (4.8-10.8)
[2018-08-25 04:30] VITALS: BP 126/60
[2018-08-25 05:00] LABS: BASOPHILS 0.5 % (0-2); EOSINOPHILS 3.5 % (0-7); HEMATOCRIT 32.6 % (36.0-48.0); HEMOGLOBIN 10.6 g/dL (12-16); IMMATURE GRANULOCYTES 0.5 % (0-5); LYMPHOCYTES 29.9 % (15-50); MCH 28.8 pg (26.0-34.0); MCHC 32.5 g/dL (31.0-37.0); MCV 88.6 fL (80.0-100.0); MEAN PLATELET VOLUME 10.1 fL (7.4-10.4); MONOCYTES 7.5 % (2-11); NEUTROPHILS 58.1 % (40-80); PLATELET COUNT 192 10x3/uL (130-400); RBC 3.68 10x6/uL (4.00-5.40); RDW 14.9 % (11.5-14.5); WBC 8.8 10x3/uL (4.8-10.8)
[2018-08-25 05:09] LABS: ALBUMIN 3.2 g/dL (3.4-5.0); ANION GAP 8.6 mmol/L (8-16); BILIRUBIN - TOTAL 0.62 mg/dL (0.2-1.3); CALCIUM 8.9 mg/dL (8.5-10.1); CARBON DIOXIDE 33.3 mmol/L (21.0-32.0); CREATININE - SERUM 1.3 mg/dL (0.6-1.3); POTASSIUM - SERUM 3.9 mmol/L (3.5-5.1); PROTEIN - SERUM 6.4 g/dL (6.4-8.2)
--- NOTE | 2018-08-25 07:30 | NUR ---
RECIEVED PT IN BED AAOX4 RESP UNLABORED SKIN W/D PT REQUEST PAIN PILL WITH MORNING MEDS
[2018-08-25 08:07] VITALS: BP 142/71
[2018-08-25 11:47] VITALS: BP 132/69
--- NOTE | 2018-08-25 15:04 | MORECARE ---
CASE MANAGEMENT DISCHARGE SUMMARY PATIENT: RICHARD SOUZA UNIT: [id number] ADM DATE: 08/21/18 AGE: 73 : 44 SEX: F ROOM/BED: D.2116 AUTHOR: PAM,DOC PHYSICIAN: REFERRING PHYSICIAN: SANKET DELGADO MD DATE OF SERVICE: 08/25/18 Discharge Plan Patient Name: RICHARD SOUZA Facility: [facility]:[place] : 1945 Planned Disposition: Home Anticipated Discharge Date: Discharge Date: Expected LOS: Initial Reviewer: [id number] Initial Review Date: 08/19/2018 Generated: 08/25/18 4:04 pm Comments DCP- Discharge Planning Updated by [id number]: Senait Harrington on 08/25/18 1:[address] Patient Name: RICHARD SOUZA Admission Status: ER Accout number: [id number] Admission Date: 08-21-2018 : 1945 Admission Diagnosis:CHEST PAIN, UNSPECIFIED Attending: ORLANDO DELGADO Current LOS: 4 Anticipated DC Date: Planned Disposition: Home Primary Insurance: MEDICARE A & B Discharge Planning Comments: PT HAS REHAB EVAL. PENDING.. [place]IPE FORM FOR HOME O2 SIGNED FOR [facility] AT [phone] IS CONTACT IF PT NEEDS O2 AT DC Fast Food Shift Supervisor: Senait Harrington DCP- Discharge Planning Updated by [email or web address]: Jayjay Matos on 08/23/18 4:[address] Patient Name: RICHARD SOUZA Encounter No: [id number] : 1945 Primary Insurance: MEDICARE A & B Anticipated DC Date: Planned Disposition: Home DCP follow-up note: CM RECEIVED REQUEST TO SEE PT IN ROOM 6, MET WITH PT AND DAUGHTER JENNA GOODMAN. PT PROVIDED PERMISSION TO TALK ABOUT HER CARE AND DISCHARGE PLANNING WITH JENNA REPORTING JENNA TO BE PT'S POWER OF DIRECTOR TELEVISION IF NEEDED. PT WANTS TO LET HER CHOICE FOR MEDICAL EQUIPMENT BE KNOWN IF SHE NEEDS OXYGEN AND PROVIDED CHOICE OF [facility] [place], [place] [phone]. PT WILL NEED OXYGEN TESTING WITHIN 48 HOURS OF DISCHARGE HOME. IF PT NEEDS HOME OXYGEN, CM TO ARRANGE WITH [facility] IN [place]. CM TO FOLLOW AND ASSIST NEEDED. Jayjay Matos, CASE MANAGEMENT DCP- Discharge Planning Updated by [id number]: Jayjay Matos on 08/21/18 4:[address] Patient Name: RICHARD SOUZA Admission Status: ER Accout number: [id number] Admission Date: 08-21-2018 : 1945 Admission Diagnosis: Attending: ORLANDO DELGADO Current LOS: 1 Anticipated DC Date: Planned Disposition: Home Primary Insurance: MEDICARE A & B Discharge Planning Comments: CM MET WITH PTAND PT'S FRIEND IN ROOM TO DISCUSS DISCHARGE PLANNING AND NEEDS. RICHARD SOUZA provided verbal consent to discuss current and ongoing needs with/in the presence of: FRIEND, LILIAM, PT'S SUNDAY TALLOW REFINER. PT REPORTS LIVING AT HOME INDEPENDENTLY AND ALONE. PT HAS A CANE AND WALKER WITH BRAKES AND SEAT WITH NO MEDICAL EQUIPMENT PROVIDER PREFERNECE. PT HAS NO OUTSIDE SERVICES ASSISTING IN THE HOME. CM DISCUSSED AVAILABILITY OF HOME HEALTH, REHAB SERVICES AND MEDICAL EQUIPMENT. PT REPORTS UNKNOWN DISCHARGE NEEDS, THINKS SHE MIGHT NEED OXYGEN AT DISCHARGE. CM EXPLAINED THAT PT WILL BE TESTED IF NECESSARY AND CM WILL SET UP DAY BEFORE OR DAY OF DISCHARGE. PT REPORTS PLAN TO DISCHARGE HOME ALONE, REPORTS HER DAUGHTER WILL PICK HER UP FOR DISCHARGE HOME. PT REPORTS PLAN TO RETURN HOME ALONE AT DISCHARGE, DAUGHTER TO TRANSPORT. IF PT NEEDS OXYGEN, SHE HAS NO MEDICAL EQUIPMENT PROVIDER PREFERENCE. CM TO FOLLOW AND ASSIST IF NECESSARY. Fast Food Shift Supervisor: Jayjay Matos DCPIA - Discharge Planning Initial Assessment Updated by [id number]: Jayjay Matos on 08/21/18 5:10 pm * Is the patient Alert and Oriented? Yes * How many steps to enter\exit or inside your home? * PCP GEORGE WARD AT DR. BOLAND'S OFFICE * Pharmacy [facility] IN [place] * Preadmission Environment Home Alone * ADLs Independent * Equipment Cane Rolling Walker * Other Equipment WALKER WITH BRAKES AND SEAT NO MEDICAL EQUIPMENT PROVIDER PREFERENCE * List name and contact numbers for known caregivers / representatives who currently or will assist patient after discharge: FLOWER GOODMAN DTR, * Verbal permission to speak to the caregivers and representatives has been obtained from the patient. Yes * Community resources currently utilized None * Please name any agencies selected above. none * Additional services required to return to the preadmission environment? No * Can the patient safely return to the preadmission environment? Yes * Has this patient been hospitalized within the prior 30 days at any hospital? No Coverage Notice Reviewer: [id number] Matos Notice Issued Date-Time: 08/23/2018 14:40 Notice Type: IM Discharge Notice Notice Delivered To: Family Member Relationship to Patient: Daughter Director Advanced Name: JUAN ANTONIO GOODMAN Delivery Method: HAND - Hand Delivered Lien Days: Prior Verbal Notification: Recipient Understood Notice: Yes Recipient Signature: Yes Med Rec Note Co-signed by Attending: Coverage Notice Comment: Reviewer: [id number] Matos Notice Issued Date-Time: 08/23/2018 14:40 Notice Type: Patient Choice Letter Notice Delivered To: Family Member Relationship to Patient: Daughter Director Advanced Name: JENNA GOODMAN Delivery Method: HAND - Hand Delivered Lien Days: Prior Verbal Notification: Recipient Understood Notice: Yes Recipient Signature: Yes Med Rec Note Co-signed by Attending: Coverage Notice Comment: [facility], [place] [phone] Last DP export: 08/23/18 4:19 p Patient Name: RICHARD SOUZA Page 28531 at 1504 All edits/amendments must be made on the electronic document DICTATION DATE: 08/25/181503 FURNITURE UPHOLSTERY MECHANIC: ETTA 08/25/18 150 RPT#: [id number] DC DATE: STATUS: ADM IN [facility] [address] [place] [address] END OF REPORT
[2018-08-25 15:42] VITALS: BP 145/73
--- NOTE | 2018-08-25 19:43 | NUR ---
RECIEVED UP IN BED WITH EYES OPEN AND TV ON. ALERT AND ORIENTED X4. UP AD ALEXANDER TO B/R. IV TO LEFT FA.. O2@ 2 LITERS PER N/C. TELEMETRY UIN PLACE. DENIES ANY NEEDS AT THIS TIME.
[2018-08-25 20:00] VITALS: BP 132/57
[2018-08-26] VITALS: BP 114/58
[2018-08-26 00:34] LABS: HEMATOCRIT 31.3 % (36.0-48.0); HEMOGLOBIN 10.1 g/dL (12-16); MCH 28.6 pg (26.0-34.0); MCHC 32.3 g/dL (31.0-37.0); MCV 88.7 fL (80.0-100.0); MEAN PLATELET VOLUME 10.4 fL (7.4-10.4); RBC 3.53 10x6/uL (4.00-5.40); RDW 15.2 % (11.5-14.5); WBC 9.8 10x3/uL (4.8-10.8)
[2018-08-26 04:00] VITALS: BP 123/52
[2018-08-26 05:34] LABS: BASOPHILS 0.4 % (0-2); EOSINOPHILS 3.3 % (0-7); HEMATOCRIT 30.7 % (36.0-48.0); HEMOGLOBIN 9.9 g/dL (12-16); IMMATURE GRANULOCYTES 0.4 % (0-5); LYMPHOCYTES 30.6 % (15-50); MCH 28.4 pg (26.0-34.0); MCHC 32.2 g/dL (31.0-37.0); MCV 88.2 fL (80.0-100.0); MEAN PLATELET VOLUME 9.7 fL (7.4-10.4); MONOCYTES 9.3 % (2-11); PLATELET COUNT 174 10x3/uL (130-400); RBC 3.48 10x6/uL (4.00-5.40); RDW 15.1 % (11.5-14.5); WBC 8.2 10x3/uL (4.8-10.8)
[2018-08-26 05:38] LABS: ANION GAP 8.8 mmol/L (8-16); CALCIUM 8.8 mg/dL (8.5-10.1); CARBON DIOXIDE 31.2 mmol/L (21.0-32.0); CREATININE - SERUM 1.3 mg/dL (0.6-1.3); MAGNESIUM - SERUM 1.9 mg/dL (1.8-2.4); PHOSPHOROUS 4.6 mg/dL (2.5-4.9)
[2018-08-26 07:56] VITALS: BP 144/68
--- NOTE | 2018-08-26 08:59 | NUR ---
REHAB PRESCREENING Rehab referral received and chart reviewed. Ms. Maria ambulated 500 feet with PT and was signed off to nursing. She does not meet admission criteria. Thank you for this referral! Yahaira Loaiza, AGENT CONTRACT CLERK Rehab PD
--- NOTE | 2018-08-26 10:06 | EC ---
PATIENT:RICHARD SOUZA DATE OF SERVICE: 08/19/18 SEX: F MEDICAL RECORD: [id number] DATE OF : [birth year] LOCATION:D.M2 D.211 AGE OF PATIENT: 73 ADMISSION DATE: 08/21/18 REFERRING PHYSICIAN: INTERPRETING PHYSICIAN: CHRISTIANO TOLENTINO MD ECHOCARDIOGRAM REPORT ECHO CHARGES 4 ECHO COMPLETE Date: 08/20/18 CLINICAL DIAGNOSIS: CHEST PAIN ECHOCARDIOGRAPHIC MEASUREMENTS (adult normal given) AC root (d.<3.7cm) 3.0 cm LV Septum d (<1.2 cm> 1.4 cm Valve Excursion 1.6 cm LV Septum (systole) 1.8 cm Left Atria (s.<4.0cm> 3.4 cm LVPW d(<1.2cm) 1.3 cm RV (d.<2.3cm) 4.5 cm LVPW (sytole) 1.9 cm LV diastole(<5.6CM) 4.9 cm MV E-F(>70mm/sec) cm LV systole 3.2 cm LVOT Diameter 2.1 cm MV exc.(>10mm) 1.8 cm Est.ejection fraction (50-75%) % DOPPLER: LVIT cm/sec A 71.0 cm/sec E 44.0 cm/sec LA cm/sec RVSP 43 mmHg LVOT 84 cm/sec AOP1/2T m/s Asc. Ao 128 cm/sec RVOT 62 cm/sec RA cm/sec PA 90 cm/sec AV Gradient Peak 6.51 mmHg AV Mean 3.67 mmHg AV Area 2.2 cm MV Gradient Peak 2.59 mmHg MV Mean 1.08 mmHg MV Area cm COMMENTS: Group Home Supervisor: 2 LEANNE LUTZ Railroad Car Repairman: 3 Dr. Jernigan TAPE# PACS Pericardial Effusion N DATE OF SERVICE: Adequate 2-D echo, color-flow and spectral Doppler, and M-mode. LVH is present. LV internal dimensions are normal. Wall motion is normally. EF is greater than 55%. Aortic valve is tricuspid. No evidence of stenosis by Doppler interrogation. Left atrium is normal at 3.4 cm. Mitral valve shows no prolapse. Trace MR. Right-sided chambers are grossly normal. Trace TR. TRANSINT:[id number] Voice Confirmation ID: [id number] DOCUMENT ID: [id number] ECHOCARDIOGRAM REPORT [id number] RICHARD SOUZA GREGORY A MD at 1006 CC: [id number] DICTATION DATE: 08/20/18 1150 TIMBER BUYER: 08/20/18 1234 ADM IN [facility] [address] [place] [id number]
--- NOTE | 2018-08-26 10:13 | NUR ---
TELEMETRY SR. RESP UL ON . UD CONT. PER RT. WILL CONT. PLAN OF CARE.
[2018-08-26 11:41] VITALS: BP 125/53
[2018-08-26 16:21] VITALS: BP 120/59
[2018-08-26 18:07] LABS: FACTOR II DNA ANALYSIS Negative (())
--- NOTE | 2018-08-26 19:14 | NUR ---
RECIEVED LAYING IN BED WITH EYES OPEN AND TV ON. ALERT AND ORIENTED X4. UP AD ALEXANDER TO B/R. O2 @ 2 LITERS PER N/C. IV TO LEFT FA SL. TELEMETRY IN PLACE. DENIES ANY NEEDS AT THIS TIME.
[2018-08-26 20:00] VITALS: BP 122/59
[2018-08-27] VITALS: BP 106/47
[2018-08-27 04:00] VITALS: BP 131/65
[2018-08-27 08:13] VITALS: BP 136/62
--- NOTE | 2018-08-27 10:14 | NUR ---
UP AMBULATING HALLWAY WITH RT FOR 02 ALICIA TEST. WILL CONT. PLAN OF CARE.
--- NOTE | 2018-08-27 11:07 | MORECARE ---
CASE MANAGEMENT DISCHARGE SUMMARY PATIENT: RICHARD SOUZA UNIT: [id number] ADM DATE: 08/21/18 AGE: 73 : 44 SEX: F ROOM/BED: D.2116 AUTHOR: PAM,DOC PHYSICIAN: REFERRING PHYSICIAN: SANKET DELGADO MD DATE OF SERVICE: 08/27/18 Discharge Plan Patient Name: RICHARD SOUZA Facility: [facility]:[place] : 1945 Planned Disposition: Home with Home Health Anticipated Discharge Date: 08/27/18 Discharge Date: Expected LOS: 6 Initial Reviewer: [id number] Initial Review Date: 08/19/2018 Generated: 08/27/18 12:07 pm Comments DCP- Discharge Planning Updated by [email or web address]: Senait Harrington on 08/25/18 1:[address] Patient Name: RICHARD SOUZA Admission Status: ER Accout number: [id number] Admission Date: 08-21-2018 : 1945 Admission Diagnosis:CHEST PAIN, UNSPECIFIED Attending: ORLANDO DELGADO Current LOS: 4 Anticipated DC Date: Planned Disposition: Home Primary Insurance: MEDICARE A & B Discharge Planning Comments: PT HAS REHAB EVAL. PENDING.. FELIPE FORM FOR HOME O2 SIGNED FOR [facility] AT [phone] IS CONTACT IF PT NEEDS O2 AT DC Grounds Foreman: Senait Harrington DCP- Discharge Planning Updated by [id number]: Jayjay Matos on 08/23/18 4:[address] Patient Name: RICHARD SOUZA Encounter No: [id number] : 1945 Primary Insurance: MEDICARE A & B Anticipated DC Date: Planned Disposition: Home DCP follow-up note: CM RECEIVED REQUEST TO SEE PT IN ROOM 6, MET WITH PT AND DAUGHTER JENNA GOODMAN. PT PROVIDED PERMISSION TO TALK ABOUT HER CARE AND DISCHARGE PLANNING WITH JENNA REPORTING JENNA TO BE PT'S POWER OF WEIGHT CALCULATOR IF NEEDED. PT WANTS TO LET HER CHOICE FOR MEDICAL EQUIPMENT BE KNOWN IF SHE NEEDS OXYGEN AND PROVIDED CHOICE OF [facility], [place] [phone]. PT WILL NEED OXYGEN TESTING WITHIN 48 HOURS OF DISCHARGE HOME. IF PT NEEDS HOME OXYGEN, CM TO ARRANGE WITH [facility] IN [place]. CM TO FOLLOW AND ASSIST NEEDED. Jayjay Matos, CASE MANAGEMENT DCP- Discharge Planning Updated by [id number]: Jayjay Matos on 08/21/18 4:[address] Patient Name: RICHARD SOUZA Admission Status: ER Accout number: [id number] Admission Date: 08-21-2018 : 1945 Admission Diagnosis: Attending: ORLANDO DELGADO Current LOS: 1 Anticipated DC Date: Planned Disposition: Home Primary Insurance: MEDICARE A & B Discharge Planning Comments: CM MET WITH PTAND PT'S FRIEND IN ROOM TO DISCUSS DISCHARGE PLANNING AND NEEDS. RICHARD SOUZA provided verbal consent to discuss current and ongoing needs with/in the presence of: FRIEND, LILIAM, PT'S SUNDAY CNS. PT REPORTS LIVING AT HOME INDEPENDENTLY AND ALONE. PT HAS A CANE AND WALKER WITH BRAKES AND SEAT WITH NO MEDICAL EQUIPMENT PROVIDER PREFERNECE. PT HAS NO OUTSIDE SERVICES ASSISTING IN THE HOME. CM DISCUSSED AVAILABILITY OF HOME HEALTH, REHAB SERVICES AND MEDICAL EQUIPMENT. PT REPORTS UNKNOWN DISCHARGE NEEDS, THINKS SHE MIGHT NEED OXYGEN AT DISCHARGE. CM EXPLAINED THAT PT WILL BE TESTED IF NECESSARY AND CM WILL SET UP DAY BEFORE OR DAY OF DISCHARGE. PT REPORTS PLAN TO DISCHARGE HOME ALONE, REPORTS HER DAUGHTER WILL PICK HER UP FOR DISCHARGE HOME. PT REPORTS PLAN TO RETURN HOME ALONE AT DISCHARGE, DAUGHTER TO TRANSPORT. IF PT NEEDS OXYGEN, SHE HAS NO MEDICAL EQUIPMENT PROVIDER PREFERENCE. CM TO FOLLOW AND ASSIST IF NECESSARY. Grounds Foreman: Jayjay Matos DCPIA - Discharge Planning Initial Assessment Updated by [id number]: Jayjay Matos on 08/21/18 5:10 pm * Is the patient Alert and Oriented? Yes * How many steps to enter\exit or inside your home? * PCP GEORGE WARD AT DR. BOLAND'S OFFICE * Pharmacy [facility] IN [place] * Preadmission Environment Home Alone * ADLs Independent * Equipment Cane Rolling Walker * Other Equipment WALKER WITH BRAKES AND SEAT NO MEDICAL EQUIPMENT PROVIDER PREFERENCE * List name and contact numbers for known caregivers / representatives who currently or will assist patient after discharge: FLOWER GOODMAN DTR, * Verbal permission to speak to the caregivers and representatives has been obtained from the patient. Yes * Community resources currently utilized None * Please name any agencies selected above. none * Additional services required to return to the preadmission environment? No * Can the patient safely return to the preadmission environment? Yes * Has this patient been hospitalized within the prior 30 days at any hospital? No External Providers External Provider: Sumaya Lincoln Contact Date: 08/27/2018 Service Request Date: Service Type: Resolution: Reviewer: Comments: Coverage Notice Reviewer: [email or web address] Matos Notice Issued Date-Time: 08/23/2018 14:40 Notice Type: IM Discharge Notice Notice Delivered To: Family Member Relationship to Patient: Daughter Phlebotomy Lab Assistant Name: JUAN ANTONIO GOODMAN Delivery Method: HAND - Hand Delivered Lien Days: Prior Verbal Notification: Recipient Understood Notice: Yes Recipient Signature: Yes Med Rec Note Co-signed by Attending: Coverage Notice Comment: Reviewer: DASHA Matos Notice Issued Date-Time: 08/23/2018 14:40 Notice Type: Patient Choice Letter Notice Delivered To: Family Member Relationship to Patient: Daughter Phlebotomy Lab Assistant Name: JENNA GOODMAN Delivery Method: HAND - Hand Delivered Lien Days: Prior Verbal Notification: Recipient Understood Notice: Yes Recipient Signature: Yes Med Rec Note Co-signed by Attending: Coverage Notice Comment: [facility] [place], [place] [phone] Last DP export: 08/25/18 2:04 p Patient Name: RICHARD SOUZA Page 31605 at 1107 All edits/amendments must be made on the electronic document DICTATION DATE: 08/27/18 1106 INTERNET SECURITY SPECIALIST: ETTA 08/27/18 1106 RPT#: [id number] DC DATE: STATUS: ADM IN [facility] [address] [place] [address] END OF REPORT
--- NOTE | 2018-08-27 11:32 | MORECARE ---
CASE MANAGEMENT DISCHARGE SUMMARY PATIENT: RICHARD SOUZA UNIT: [id number] ADM DATE: 08/21/18 AGE: 73 : 44 SEX: F ROOM/BED: D.2116 AUTHOR: PAM,DOC PHYSICIAN: REFERRING PHYSICIAN: SANKET DELGADO MD DATE OF SERVICE: 08/27/18 Discharge Plan Patient Name: RICHARD SOUZA Facility: [facility]:[place] : 1945 Planned Disposition: Home with Home Health Anticipated Discharge Date: 08/27/18 Discharge Date: Expected LOS: 6 Initial Reviewer: [id number] Initial Review Date: 08/19/2018 Generated: 08/27/18 12:32 pm Comments DCP- Discharge Planning Updated by [email or web address]: Senait Harrington on 08/25/18 1:[address] Patient Name: RICHARD SOUZA Admission Status: ER Accout number: [id number] Admission Date: 08-21-2018 : 1945 Admission Diagnosis:CHEST PAIN, UNSPECIFIED Attending: ORLANDO DELGADO Current LOS: 4 Anticipated DC Date: Planned Disposition: Home Primary Insurance: MEDICARE A & B Discharge Planning Comments: PT HAS REHAB EVAL. PENDING.. FELIPE FORM FOR HOME O2 SIGNED FOR [facility] [place] AT [phone] IS CONTACT IF PT NEEDS O2 AT DC Statistical Machine Mechanic: Senait Harrington DCP- Discharge Planning Updated by [email or web address]: Jayjay Matos on 08/23/18 4:[address] Patient Name: RICHARD SOUZA Encounter No: [id number] : 1945 Primary Insurance: MEDICARE A & B Anticipated DC Date: Planned Disposition: Home DCP follow-up note: CM RECEIVED REQUEST TO SEE PT IN ROOM 6, MET WITH PT AND DAUGHTER JENNA GOODMAN. PT PROVIDED PERMISSION TO TALK ABOUT HER CARE AND DISCHARGE PLANNING WITH JENNA REPORTING JENNA TO BE PT'S POWER OF COVERAGE SPECIALIST IF NEEDED. PT WANTS TO LET HER CHOICE FOR MEDICAL EQUIPMENT BE KNOWN IF SHE NEEDS OXYGEN AND PROVIDED CHOICE OF [facility], CELL [phone]. PT WILL NEED OXYGEN TESTING WITHIN 48 HOURS OF DISCHARGE HOME. IF PT NEEDS HOME OXYGEN, CM TO ARRANGE WITH [facility] IN [place]. CM TO FOLLOW AND ASSIST NEEDED. Jayjay Matos, CASE MANAGEMENT DCP- Discharge Planning Updated by [id number]: Jayjay Matos on 08/21/18 4:[address] Patient Name: RICHARD SOUZA Admission Status: ER Accout number: [id number] Admission Date: 08-21-2018 : 1945 Admission Diagnosis: Attending: ORLANDO DELGADO Current LOS: 1 Anticipated DC Date: Planned Disposition: Home Primary Insurance: MEDICARE A & B Discharge Planning Comments: CM MET WITH PTAND PT'S FRIEND IN ROOM TO DISCUSS DISCHARGE PLANNING AND NEEDS. RICHARD SOUZA provided verbal consent to discuss current and ongoing needs with/in the presence of: FRIEND, LILIAM, PT'S SUNDAY COMMERCIAL RETOUCHER. PT REPORTS LIVING AT HOME INDEPENDENTLY AND ALONE. PT HAS A CANE AND WALKER WITH BRAKES AND SEAT WITH NO MEDICAL EQUIPMENT PROVIDER PREFERNECE. PT HAS NO OUTSIDE SERVICES ASSISTING IN THE HOME. CM DISCUSSED AVAILABILITY OF HOME HEALTH, REHAB SERVICES AND MEDICAL EQUIPMENT. PT REPORTS UNKNOWN DISCHARGE NEEDS, THINKS SHE MIGHT NEED OXYGEN AT DISCHARGE. CM EXPLAINED THAT PT WILL BE TESTED IF NECESSARY AND CM WILL SET UP DAY BEFORE OR DAY OF DISCHARGE. PT REPORTS PLAN TO DISCHARGE HOME ALONE, REPORTS HER DAUGHTER WILL PICK HER UP FOR DISCHARGE HOME. PT REPORTS PLAN TO RETURN HOME ALONE AT DISCHARGE, DAUGHTER TO TRANSPORT. IF PT NEEDS OXYGEN, SHE HAS NO MEDICAL EQUIPMENT PROVIDER PREFERENCE. CM TO FOLLOW AND ASSIST IF NECESSARY. Statistical Machine Mechanic: Jayjay Matos DCPIA - Discharge Planning Initial Assessment Updated by [id number]: Jayjay Matos on 08/21/18 5:10 pm * Is the patient Alert and Oriented? Yes * How many steps to enter\exit or inside your home? * PCP GEORGE WARD AT DR. BOLAND'S OFFICE * Pharmacy [facility] [place] * Preadmission Environment Home Alone * ADLs Independent * Equipment Cane Rolling Walker * Other Equipment WALKER WITH BRAKES AND SEAT NO MEDICAL EQUIPMENT PROVIDER PREFERENCE * List name and contact numbers for known caregivers / representatives who currently or will assist patient after discharge: FLOWER GOODMAN DTR, * Verbal permission to speak to the caregivers and representatives has been obtained from the patient. Yes * Community resources currently utilized None * Please name any agencies selected above. none * Additional services required to return to the preadmission environment? No * Can the patient safely return to the preadmission environment? Yes * Has this patient been hospitalized within the prior 30 days at any hospital? No External Providers External Provider: [facility] Next Contact Date: 08/27/2018 Service Request Date: Service Type: Resolution: Reviewer: Comments: Coverage Notice Reviewer: [id number] Balaji Matos Notice Issued Date-Time: 08/23/2018 14:40 Notice Type: IM Discharge Notice Notice Delivered To: Family Member Relationship to Patient: Daughter Bag Checker Name: JUAN ANTONIO GOODMAN Delivery Method: HAND - Hand Delivered Lien Days: Prior Verbal Notification: Recipient Understood Notice: Yes Recipient Signature: Yes Med Rec Note Co-signed by Attending: Coverage Notice Comment: Reviewer: [id number] Matos Notice Issued Date-Time: 08/23/2018 14:40 Notice Type: Patient Choice Letter Notice Delivered To: Family Member Relationship to Patient: Daughter Bag Checker Name: JENNA GOODMAN Delivery Method: HAND - Hand Delivered Lien Days: Prior Verbal Notification: Recipient Understood Notice: Yes Recipient Signature: Yes Med Rec Note Co-signed by Attending: Coverage Notice Comment: [facility] [place], CELL [phone] Last DP export: 08/27/18 10:07 a Patient Name: RICHARD SOUZA Page [phone] at 1132 All edits/amendments must be made on the electronic document DICTATION DATE: 08/27/18 113 TILE LAYER DRAINAGE: ETTA 08/27/18 1131 RPT#: [id number] DC DATE: STATUS: ADM IN [facility] [address] [place] [address] END OF REPORT
[2018-08-27 11:36] VITALS: BP 126/53
--- NOTE | 2018-08-27 12:40 | MORECARE ---
CASE MANAGEMENT DISCHARGE SUMMARY PATIENT: RICHARD SOUZA UNIT: [id number] ADM DATE: 08/21/18 AGE: 73 : 44 SEX: F ROOM/BED: D.9838 AUTHOR: PAM,DOC PHYSICIAN: REFERRING PHYSICIAN: SANKET DELGADO MD DATE OF SERVICE: 08/27/18 Discharge Plan Patient Name: RICHARD SOUZA Facility: [facility]:[place] : 1945 Planned Disposition: Home with Home Health Anticipated Discharge Date: 08/27/18 Discharge Date: Expected LOS: 6 Initial Reviewer: [id number] Initial Review Date: 08/19/2018 Generated: 08/27/18 1:40 pm Comments DCP- Discharge Planning Updated by [email or web address]: Jayjay Matos on 08/27/18 11:[address] Patient Name: RICHARD SOUZA Encounter No: [id number] : 1945 Primary Insurance: MEDICARE A & B Anticipated DC Date: 08-27-2018 Planned Disposition: Home with Home Health External Planned Provider: [facility] DCP follow-up note: CM RECEIVED OXYGEN TESTING, PT QUALIFIED FOR HOME / PORTABLE OXYGEN. CM MET WITH PT IN ROOM, DISCUSSED DISCHARGE PLANNING AND NEEDS. CM DISCUSSED AVAILABILITY OF HOME HEALTH, REHAB SERVICES AND MEDICAL EQUIPMENT. PT REPORTS SHE WANTS HER OXYGEN FROM [facility] IN [place] PREVIOUSLY DISCUSSED AND PT HAS SIGNED CHOICE ALREADY. PT DENIES NEED OF REHAB SERVICES. PT WOULD LIKE HOME HEALTH AND HAS NO CHOICE FOR HOME HEALTH PROVIDER. CHOICE LISTING PROVIDED, PT SIGNED CHOICE FOR NO PREFERENCE FOR HOME HEALTH PROVIDER. IMPORTANT MESSAGE FROM MEDICARE PROVIDED AND EXPLAINED CM CALLED [facility], , SPOKE TO MIMI AND PROVIDED REFERRAL INFORMATION, FAXED REFERRAL TO [facility] AT [phone]. CM CALLED [facility], , THERE WAS NO ANSWER DURING LUNCH HOUR. CM FAXED OXYGEN ORDER AND TESTING TO [facility] AT [phone]. . [facility] TO ARRANGE PORTABLE OXYGEN TO HOPITAL ROOM AND HOME OXYGEN HOME DELIVERY AFTER PT ARRIVES HOME TODAY. Jayjay Matos, CASE MANAGEMENT DCP- Discharge Planning Updated by [id number]: Senait Harrington on 08/25/18 1:[address] Patient Name: RICHARD SOUZA Admission Status: ER Accout number: [id number] Admission Date: 08-21-2018 : 1945 Admission Diagnosis:CHEST PAIN, UNSPECIFIED Attending: ORLANDO DELGADO Current LOS: 4 Anticipated DC Date: Planned Disposition: Home Primary Insurance: MEDICARE A & B Discharge Planning Comments: PT HAS REHAB EVAL. PENDING.. FELIPE FORM FOR HOME O2 SIGNED FOR [facility].. [place] AT [phone] IS CONTACT IF PT NEEDS O2 AT DC Control Room Helper: Senait Harrintgon DCP- Discharge Planning Updated by [id number]: Jayjay Matos on 08/23/18 4:[address] Patient Name: RICHARD SOUZA Encounter No: [id number] : 1945 Primary Insurance: MEDICARE A & B Anticipated DC Date: Planned Disposition: Home DCP follow-up note: CM RECEIVED REQUEST TO SEE PT IN ROOM 2115, MET WITH PT AND DAUGHTER JENNA GOODMAN. PT PROVIDED PERMISSION TO TALK ABOUT HER CARE AND DISCHARGE PLANNING WITH JENNA REPORTING JENNA TO BE PT'S POWER OF TEAM GUIDE IF NEEDED. PT WANTS TO LET HER CHOICE FOR MEDICAL EQUIPMENT BE KNOWN IF SHE NEEDS OXYGEN AND PROVIDED CHOICE OF [facility], [place], [place]LL [phone]. PT WILL NEED OXYGEN TESTING WITHIN 48 HOURS OF DISCHARGE HOME. IF PT NEEDS HOME OXYGEN, CM TO ARRANGE WITH [facility] IN [place]. CM TO FOLLOW AND ASSIST NEEDED. Jayjay Matos, CASE MANAGEMENT DCP- Discharge Planning Updated by [id number]: Jayjay Matos on 08/21/18 4:[address] Patient Name: RICHARD SOUZA Admission Status: ER Accout number: [id number] Admission Date: 08-21-2018 : 1945 Admission Diagnosis: Attending: ORLANDO DELGADO Current LOS: 1 Anticipated DC Date: Planned Disposition: Home Primary Insurance: MEDICARE A & B Discharge Planning Comments: CM MET WITH PTAND PT'S FRIEND IN ROOM TO DISCUSS DISCHARGE PLANNING AND NEEDS. RICHARD SOUZA provided verbal consent to discuss current and ongoing needs with/in the presence of: FRIEND, LILIAM, PT'S SUNDAY FITNESS COACH. PT REPORTS LIVING AT HOME INDEPENDENTLY AND ALONE. PT HAS A CANE AND WALKER WITH BRAKES AND SEAT WITH NO MEDICAL EQUIPMENT PROVIDER PREFERNECE. PT HAS NO OUTSIDE SERVICES ASSISTING IN THE HOME. CM DISCUSSED AVAILABILITY OF HOME HEALTH, REHAB SERVICES AND MEDICAL EQUIPMENT. PT REPORTS UNKNOWN DISCHARGE NEEDS, THINKS SHE MIGHT NEED OXYGEN AT DISCHARGE. CM EXPLAINED THAT PT WILL BE TESTED IF NECESSARY AND CM WILL SET UP DAY BEFORE OR DAY OF DISCHARGE. PT REPORTS PLAN TO DISCHARGE HOME ALONE, REPORTS HER DAUGHTER WILL PICK HER UP FOR DISCHARGE HOME. PT REPORTS PLAN TO RETURN HOME ALONE AT DISCHARGE, DAUGHTER TO TRANSPORT. IF PT NEEDS OXYGEN, SHE HAS NO MEDICAL EQUIPMENT PROVIDER PREFERENCE. CM TO FOLLOW AND ASSIST IF NECESSARY. Control Room Helper: Jayjay Matos DCPIA - Discharge Planning Initial Assessment Updated by [email or web address]: Jayjay Matos on 08/21/18 5:10 pm * Is the patient Alert and Oriented? Yes * How many steps to enter\exit or inside your home? * PCP GEORGE WARD AT DR. BOLAND'S OFFICE * Pharmacy [facility] IN [place] * Preadmission Environment Home Alone * ADLs Independent * Equipment Cane Rolling Walker * Other Equipment WALKER WITH BRAKES AND SEAT NO MEDICAL EQUIPMENT PROVIDER PREFERENCE * List name and contact numbers for known caregivers / representatives who currently or will assist patient after discharge: FLOWER GOODMAN, DTR, * Verbal permission to speak to the caregivers and representatives has been obtained from the patient. Yes * Community resources currently utilized None * Please name any agencies selected above. none * Additional services required to return to the preadmission environment? No * Can the patient safely return to the preadmission environment? Yes * Has this patient been hospitalized within the prior 30 days at any hospital? No Coverage Notice Reviewer: [id number] Balaji Matos Notice Issued Date-Time: 08/23/2018 14:40 Notice Type: IM Discharge Notice Notice Delivered To: Family Member Relationship to Patient: Daughter High School Coordinator Name: JUAN ANTONIO GOODMAN Delivery Method: HAND - Hand Delivered Lien Days: Prior Verbal Notification: Recipient Understood Notice: Yes Recipient Signature: Yes Med Rec Note Co-signed by Attending: Coverage Notice Comment: Reviewer: DASHA Matos Notice Issued Date-Time: 08/23/2018 14:40 Notice Type: Patient Choice Letter Notice Delivered To: Family Member Relationship to Patient: Daughter High School Coordinator Name: JENNA GOODMAN Delivery Method: HAND - Hand Delivered Lien Days: Prior Verbal Notification: Recipient Understood Notice: Yes Recipient Signature: Yes Med Rec Note Co-signed by Attending: Coverage Notice Comment: BRAENAEILEEN Balaji RAMIREZ[facility], CELL [phone] Last DP export: 08/27/18 10:32 a Patient Name: RICHARD SOUZA Page 57950 at 1240 All edits/amendments must be made on the electronic document DICTATION DATE: 08/27/181239 VP BIOLOGY: ETTA 08/27/18 1240 RPT#: [id number] DC DATE: STATUS: ADM IN [facility] [address] [place] [address] END OF REPORT
--- NOTE | 2018-08-27 14:09 | MORECARE ---
CASE MANAGEMENT DISCHARGE SUMMARY PATIENT: RICHARD SOUZA UNIT: [id number] ADM DATE: 08/21/18 AGE: 73 : 44 SEX: F ROOM/BED: D.5854 AUTHOR: PAM,DOC PHYSICIAN: REFERRING PHYSICIAN: SANKET DELGADO MD DATE OF SERVICE: 08/27/18 Discharge Plan Patient Name: RICHARD SOUZA Facility: [facility]:[place] : 1945 Planned Disposition: Home with Home Health Anticipated Discharge Date: 08/27/18 Discharge Date: Expected LOS: 6 Initial Reviewer: [email or web address] Initial Review Date: 08/19/2018 Generated: 08/27/18 3:08 pm Comments DCP- Discharge Planning Updated by [id number]: Cipriano Freeman on 08/27/18 1:[address] Patient Name: RICHARD SOUZA Encounter No: [id number] : 1945 Primary Insurance: MEDICARE A & B Anticipated DC Date: 08-27-2018 Planned Disposition: Home with Home Health External Planned Provider: [facility] DCP follow-up note: CM RECEIVED OXYGEN TESTING, PT QUALIFIED FOR HOME / PORTABLE OXYGEN. CM MET WITH PT IN ROOM, DISCUSSED DISCHARGE PLANNING AND NEEDS. CM DISCUSSED AVAILABILITY OF HOME HEALTH, REHAB SERVICES AND MEDICAL EQUIPMENT. PT REPORTS SHE WANTS HER OXYGEN FROM [facility] IN [place] PREVIOUSLY DISCUSSED AND PT HAS SIGNED CHOICE ALREADY. PT DENIES NEED OF REHAB SERVICES. PT WOULD LIKE HOME HEALTH AND HAS NO CHOICE FOR HOME HEALTH PROVIDER. CHOICE LISTING PROVIDED, PT SIGNED CHOICE FOR NO PREFERENCE FOR HOME HEALTH PROVIDER. IMPORTANT MESSAGE FROM MEDICARE PROVIDED AND EXPLAINED CM CALLED [facility], , SPOKE TO MIMI AND PROVIDED REFERRAL INFORMATION, FAXED REFERRAL TO [facility] AT [phone]. CM CALLED [facility], , THERE WAS NO ANSWER DURING LUNCH HOUR. CM FAXED OXYGEN ORDER AND TESTING TO [facility] AT [phone]. . [facility] TO ARRANGE PORTABLE OXYGEN TO HOPITAL ROOM AND HOME OXYGEN HOME DELIVERY AFTER PT ARRIVES HOME TODAY. Cipriano Freeman, CASE MANAGEMENT Appended by Cipriano Freeman on 08/27/2018 14:00 CDT: CM CALLED [facility], , SPOKE TO RUSSELL WHO ASKED FOR MORE DETAILED ORDER AND NAME OF PT'S SECONDARY INSURANCE POLICY NAME. CM SPOKE TO PT AND OBTAINED NAME OF "[facility]". PT ADVISED THAT MEDICARE WILL NOT PROVIDE A PORTABLE OXYGEN CONCENTRATOR AT DISCHARGE AND [facility] WILL SUBMIT FOR APPROVAL AND PROVIDE PORTABLE OXYGEN BOTTLES FOR DISCHARGE HOME. PT REPORTS ACCEPTANCE AND UNDERSTANDING. CM FAXED UPDATED INSURANCE COMPANY NAME AND OXYGEN ORDER TO [facility] AT [phone].[facility] TO ARRANGE PORTABLE OXYGEN TO HOPITAL ROOM AND HOME OXYGEN HOME DELIVERY AFTER PT ARRIVES HOME TODAY. FOR DISCHARGE, FAX DISCHARGE INFORMATION TO [facility] AT [phone]. CIPRIANO FREEMAN, CASE MANAGEMENT DCP- Discharge Planning Updated by [id number]: Senait Harrington on 08/25/18 1:[address] Patient Name: RICHARD SOUZA Admission Status: ER Accout number: [id number] Admission Date: 08-21-2018 : 1945 Admission Diagnosis:CHEST PAIN, UNSPECIFIED Attending: ORLANDO DELGADO Current LOS: 4 Anticipated DC Date: Planned Disposition: Home Primary Insurance: MEDICARE A & B Discharge Planning Comments: PT HAS REHAB EVAL. PENDING.. FELIPE FORM FOR HOME O2 SIGNED FOR [facility] AT [phone] IS CONTACT IF PT NEEDS O2 AT DC Soft Shoe Dancer: Senait Harrington DCP- Discharge Planning Updated by [email or web address]: Cipriano Freeman on 08/23/18 4:[address] Patient Name: RICHARD SOUZA Encounter No: [id number] : 1945 Primary Insurance: MEDICARE A & B Anticipated DC Date: Planned Disposition: Home DCP follow-up note: JIM RECEIVED REQUEST TO SEE PT IN ROOM 6, MET WITH PT AND DAUGHTER JENNA GOODMAN. PT PROVIDED PERMISSION TO TALK ABOUT HER CARE AND DISCHARGE PLANNING WITH JENNA REPORTING JENNA TO BE PT'S POWER OF REFERRAL RN IF NEEDED. PT WANTS TO LET HER CHOICE FOR MEDICAL EQUIPMENT BE KNOWN IF SHE NEEDS OXYGEN AND PROVIDED CHOICE OF [facility], [place], [place] [phone]. PT WILL NEED OXYGEN TESTING WITHIN 48 HOURS OF DISCHARGE HOME. IF PT NEEDS HOME OXYGEN, CM TO ARRANGE WITH [facility] IN [place]. CM TO FOLLOW AND ASSIST NEEDED. Cipriano Freeman, CASE MANAGEMENT DCP- Discharge Planning Updated by [id number]: Cipriano Freeman on 08/21/18 4:[address] Patient Name: RICHARD SOUZA Admission Status: ER Accout number: [id number] Admission Date: 08-21-2018 : 1945 Admission Diagnosis: Attending: ORLANDO DELGADO Current LOS: 1 Anticipated DC Date: Planned Disposition: Home Primary Insurance: MEDICARE A & B Discharge Planning Comments: CM MET WITH PTAND PT'S FRIEND IN ROOM TO DISCUSS DISCHARGE PLANNING AND NEEDS. RICHARD SOUZA provided verbal consent to discuss current and ongoing needs with/in the presence of: FRIEND, LILIAM, PT'S SUNDAY LABORER CONSTRUCTION OR LEAK GANG. PT REPORTS LIVING AT HOME INDEPENDENTLY AND ALONE. PT HAS A CANE AND WALKER WITH BRAKES AND SEAT WITH NO MEDICAL EQUIPMENT PROVIDER PREFERNECE. PT HAS NO OUTSIDE SERVICES ASSISTING IN THE HOME. CM DISCUSSED AVAILABILITY OF HOME HEALTH, REHAB SERVICES AND MEDICAL EQUIPMENT. PT REPORTS UNKNOWN DISCHARGE NEEDS, THINKS SHE MIGHT NEED OXYGEN AT DISCHARGE. CM EXPLAINED THAT PT WILL BE TESTED IF NECESSARY AND CM WILL SET UP DAY BEFORE OR DAY OF DISCHARGE. PT REPORTS PLAN TO DISCHARGE HOME ALONE, REPORTS HER DAUGHTER WILL PICK HER UP FOR DISCHARGE HOME. PT REPORTS PLAN TO RETURN HOME ALONE AT DISCHARGE, DAUGHTER TO TRANSPORT. IF PT NEEDS OXYGEN, SHE HAS NO MEDICAL EQUIPMENT PROVIDER PREFERENCE. CM TO FOLLOW AND ASSIST IF NECESSARY. Soft Shoe Dancer: Cipriano Freeman DCPIA - Discharge Planning Initial Assessment Updated by [email or web address]: Cipriano Freeman on 08/21/18 5:10 pm * Is the patient Alert and Oriented? Yes * How many steps to enter\\exit or inside your home? * PCP GEORGE WARD AT DR. BOLAND'S OFFICE * Pharmacy [facility] IN [place] * Preadmission Environment Home Alone * ADLs Independent * Equipment Cane Rolling Walker * Other Equipment WALKER WITH BRAKES AND SEAT NO MEDICAL EQUIPMENT PROVIDER PREFERENCE * List name and contact numbers for known caregivers / representatives who currently or will assist patient after discharge: FLOWER GOODMAN DTR, * Verbal permission to speak to the caregivers and representatives has been obtained from the patient. Yes * Community resources currently utilized None * Please name any agencies selected above. none * Additional services required to return to the preadmission environment? No * Can the patient safely return to the preadmission environment? Yes * Has this patient been hospitalized within the prior 30 days at any hospital? No Coverage Notice Reviewer: DASHA Freeman Notice Issued Date-Time: 08/23/2018 14:40 Notice Type: IM Discharge Notice Notice Delivered To: Family Member Relationship to Patient: Daughter Director Of Health Care Marketing Name: JUAN ANTONIO GOODMAN Delivery Method: HAND - Hand Delivered Lien Days: Prior Verbal Notification: Recipient Understood Notice: Yes Recipient Signature: Yes Med Rec Note Co-signed by Attending: Coverage Notice Comment: Reviewer: DASHA Freeman Notice Issued Date-Time: 08/23/2018 14:40 Notice Type: Patient Choice Letter Notice Delivered To: Family Member Relationship to Patient: Daughter Director Of Health Care Marketing Name: JENNA GOODMAN Delivery Method: HAND - Hand Delivered Lien Days: Prior Verbal Notification: Recipient Understood Notice: Yes Recipient Signature: Yes Med Rec Note Co-signed by Attending: Coverage Notice Comment: [facility] VASQUEZ, CELL [phone] Reviewer: DASHA Freeman Notice Issued Date-Time: 08/27/2018 8:15 Notice Type: Patient Choice Letter Notice Delivered To: Patient Relationship to Patient: Director Of Health Care Marketing Name: Delivery Method: HAND - Hand Delivered Lien Days: Prior Verbal Notification: Recipient Understood Notice: Yes Recipient Signature: Yes Med Rec Note Co-signed by Attending: Coverage Notice Comment: NO HOME HEALTH PROVIDER PREFERENCE Reviewer: DASHA Freeman Notice Issued Date-Time: 08/27/2018 8:15 Notice Type: IM Discharge Notice Notice Delivered To: Patient Relationship to Patient: Director Of Health Care Marketing Name: Delivery Method: HAND - Hand Delivered Lien Days: Prior Verbal Notification: Recipient Understood Notice: Yes Recipient Signature: Yes Med Rec Note Co-signed by Attending: Coverage Notice Comment: Last DP export: 08/27/18 11:40 a Patient Name: RICHARD SOUZA Page 54650 at 1409 All edits/amendments must be made on the electronic document DICTATION DATE: 08/27/181407 PACKAGING LINE ATTENDANT: ETTA 08/27/18 1408 RPT#: [id number] DE DATE: STATUS: ADM IN [facility] [address] [place] [address] END OF REPORT
[2018-08-27 15:11] LABS: PROTEIN C - ANTIGEN 120 % (60-150); PROTEIN C - FUNCTIONAL 151 % (73-180)
[2018-08-27 15:30] VITALS: BP 135/69
[2018-08-27] MEDS ORDERED: ELIQUIS5 MG PO ×2 (16:37→16:39)
--- NOTE | 2018-08-27 17:10 | MORECARE ---
CASE MANAGEMENT DISCHARGE SUMMARY PATIENT: RICHARD SOUZA UNIT: [id number] ADM DATE: 08/21/18 AGE: 73 : 43 SEX: F ROOM/BED: D.6699 AUTHOR: PAM,DOC PHYSICIAN: REFERRING PHYSICIAN: SANKET DELGADO MD DATE OF SERVICE: 08/27/18 Discharge Plan Patient Name: RICHARD SOUZA Facility: [facility]:[place] : 1945 Planned Disposition: Home with Home Health Anticipated Discharge Date: 08/27/18 Discharge Date: Expected LOS: 6 Initial Reviewer: [email or web address] Initial Review Date: 08/19/2018 Generated: 08/27/18 6:10 pm Comments DCP- Discharge Planning Updated by [email or web address]: Cipriano Freeman on 08/27/18 4:[address] Patient Name: RICHARD SOUZA Encounter No: [id number] : 1945 Primary Insurance: MEDICARE A & B Anticipated DC Date: 08-27-2018 Planned Disposition: Home with Home Health External Planned Provider: [facility] DCP follow-up note: CM RECEIVED OXYGEN TESTING, PT QUALIFIED FOR HOME / PORTABLE OXYGEN. CM MET WITH PT IN ROOM, DISCUSSED DISCHARGE PLANNING AND NEEDS. CM DISCUSSED AVAILABILITY OF HOME HEALTH, REHAB SERVICES AND MEDICAL EQUIPMENT. PT REPORTS SHE WANTS HER OXYGEN FROM [facility] IN [place] PREVIOUSLY DISCUSSED AND PT HAS SIGNED CHOICE ALREADY. PT DENIES NEED OF REHAB SERVICES. PT WOULD LIKE HOME HEALTH AND HAS NO CHOICE FOR HOME HEALTH PROVIDER. CHOICE LISTING PROVIDED, PT SIGNED CHOICE FOR NO PREFERENCE FOR HOME HEALTH PROVIDER. IMPORTANT MESSAGE FROM MEDICARE PROVIDED AND EXPLAINED CM CALLED [facility], , SPOKE TO MIMI AND PROVIDED REFERRAL INFORMATION, FAXED REFERRAL TO [facility] AT [phone]. CM CALLED [facility], , THERE WAS NO ANSWER DURING LUNCH HOUR. CM FAXED OXYGEN ORDER AND TESTING TO [facility] AT [phone]. . [facility] TO ARRANGE PORTABLE OXYGEN TO HOPITAL ROOM AND HOME OXYGEN HOME DELIVERY AFTER PT ARRIVES HOME TODAY. Cipriano Freeman, CASE MANAGEMENT Appended by Cipriano Freeman on 08/27/2018 14:00 CDT: CM CALLED [facility], , SPOKE TO RUSSELL WHO ASKED FOR MORE DETAILED ORDER AND NAME OF PT'S SECONDARY INSURANCE POLICY NAME. CM SPOKE TO PT AND OBTAINED NAME OF "[facility]". PT ADVISED THAT MEDICARE WILL NOT PROVIDE A PORTABLE OXYGEN CONCENTRATOR AT DISCHARGE AND [facility] WILL SUBMIT FOR APPROVAL AND PROVIDE PORTABLE OXYGEN BOTTLES FOR DISCHARGE HOME. PT REPORTS ACCEPTANCE AND UNDERSTANDING. CM FAXED UPDATED INSURANCE COMPANY NAME AND OXYGEN ORDER TO [facility] AT [phone].[facility] TO ARRANGE PORTABLE OXYGEN TO HOPITAL ROOM AND HOME OXYGEN HOME DELIVERY AFTER PT ARRIVES HOME TODAY. FOR DISCHARGE, FAX DISCHARGE INFORMATION TO [facility] AT [phone]. CIPRIANO FREEMAN, CASE MANAGEMENT Appended by Cipriano Freeman on 08/27/2018 17:07 CDT: JIM FAXED DISCHARGE INFORMATION TO [facility] AT [phone]. CIPRIANO FREEMAN, CASE MANAGEMENT DCP- Discharge Planning Updated by [id number]: Senait Harrington on 08/25/18 1:[address] Patient Name: RICHARD SOUZA Admission Status: ER Accout number: [id number] Admission Date: 08-21-2018 : 1945 Admission Diagnosis:CHEST PAIN, UNSPECIFIED Attending: ORLANDO DELGADO Current LOS: 4 Anticipated DC Date: Planned Disposition: Home Primary Insurance: MEDICARE A & B Discharge Planning Comments: PT HAS REHAB EVAL. PENDING.. FELIPE FORM FOR HOME O2 SIGNED FOR [facility] AT [phone] IS CONTACT IF PT NEEDS O2 AT DC Production Control Coordinating Clerk: Senait Harrington DCP- Discharge Planning Updated by [email or web address]: Cipriano Freeman on 08/23/18 4:[address] Patient Name: RICHARD SOUZA Encounter No: [id number] : 1945 Primary Insurance: MEDICARE A & B Anticipated DC Date: Planned Disposition: Home DCP follow-up note: JIM RECEIVED REQUEST TO SEE PT IN ROOM 6, MET WITH PT AND DAUGHTER JENNA GOODMAN. PT PROVIDED PERMISSION TO TALK ABOUT HER CARE AND DISCHARGE PLANNING WITH JENNA REPORTING JENNA TO BE PT'S POWER OF CHILDREN'S AIDE IF NEEDED. PT WANTS TO LET HER CHOICE FOR MEDICAL EQUIPMENT BE KNOWN IF SHE NEEDS OXYGEN AND PROVIDED CHOICE OF [facility] [place], [place] [phone]. PT WILL NEED OXYGEN TESTING WITHIN 48 HOURS OF DISCHARGE HOME. IF PT NEEDS HOME OXYGEN, CM TO ARRANGE WITH [facility] IN [place]. CM TO FOLLOW AND ASSIST NEEDED. Cipriano Freeman, CASE MANAGEMENT DCP- Discharge Planning Updated by [email or web address]: Cipriano Freeman on 08/21/18 4:[address] Patient Name: RICHARD SOUZA Admission Status: ER Accout number: [id number] Admission Date: 08-21-2018 : 1945 Admission Diagnosis: Attending: ORLANDO DELGADO Current LOS: 1 Anticipated DC Date: Planned Disposition: Home Primary Insurance: MEDICARE A & B Discharge Planning Comments: CM MET WITH PTAND PT'S FRIEND IN ROOM TO DISCUSS DISCHARGE PLANNING AND NEEDS. RICHARD SOUZA provided verbal consent to discuss current and ongoing needs with/in the presence of: FRIEND, LILIAM, PT'S SUNDAY ROTARY KILN OPERATOR. PT REPORTS LIVING AT HOME INDEPENDENTLY AND ALONE. PT HAS A CANE AND WALKER WITH BRAKES AND SEAT WITH NO MEDICAL EQUIPMENT PROVIDER PREFERNECE. PT HAS NO OUTSIDE SERVICES ASSISTING IN THE HOME. CM DISCUSSED AVAILABILITY OF HOME HEALTH, REHAB SERVICES AND MEDICAL EQUIPMENT. PT REPORTS UNKNOWN DISCHARGE NEEDS, THINKS SHE MIGHT NEED OXYGEN AT DISCHARGE. CM EXPLAINED THAT PT WILL BE TESTED IF NECESSARY AND CM WILL SET UP DAY BEFORE OR DAY OF DISCHARGE. PT REPORTS PLAN TO DISCHARGE HOME ALONE, REPORTS HER DAUGHTER WILL PICK HER UP FOR DISCHARGE HOME. PT REPORTS PLAN TO RETURN HOME ALONE AT DISCHARGE, DAUGHTER TO TRANSPORT. IF PT NEEDS OXYGEN, SHE HAS NO MEDICAL EQUIPMENT PROVIDER PREFERENCE. CM TO FOLLOW AND ASSIST IF NECESSARY. Production Control Coordinating Clerk: Cipriano Freeman DCPIA - Discharge Planning Initial Assessment Updated by [id number]: Cipriano Freeman on 08/21/18 5:10 pm * Is the patient Alert and Oriented? Yes * How many steps to enter\\exit or inside your home? * PCP GEORGE WARD AT DR. BOLAND'S OFFICE * Pharmacy [facility] IN [place] * Preadmission Environment Home Alone * ADLs Independent * Equipment Cane Rolling Walker * Other Equipment WALKER WITH BRAKES AND SEAT NO MEDICAL EQUIPMENT PROVIDER PREFERENCE * List name and contact numbers for known caregivers / representatives who currently or will assist patient after discharge: FLOWER GOODMAN DTR, * Verbal permission to speak to the caregivers and representatives has been obtained from the patient. Yes * Community resources currently utilized None * Please name any agencies selected above. none * Additional services required to return to the preadmission environment? No * Can the patient safely return to the preadmission environment? Yes * Has this patient been hospitalized within the prior 30 days at any hospital? No Coverage Notice Reviewer: DASHA Freeman Notice Issued Date-Time: 08/23/2018 14:40 Notice Type: IM Discharge Notice Notice Delivered To: Family Member Relationship to Patient: Daughter Entertainment Production Professional Name: JUAN ANTONIO GOODMAN Delivery Method: HAND - Hand Delivered Lien Days: Prior Verbal Notification: Recipient Understood Notice: Yes Recipient Signature: Yes Med Rec Note Co-signed by Attending: Coverage Notice Comment: Reviewer: DASHA Freeman Notice Issued Date-Time: 08/23/2018 14:40 Notice Type: Patient Choice Letter Notice Delivered To: Family Member Relationship to Patient: Daughter Entertainment Production Professional Name: JENNA GOODMAN Delivery Method: HAND - Hand Delivered Lien Days: Prior Verbal Notification: Recipient Understood Notice: Yes Recipient Signature: Yes Med Rec Note Co-signed by Attending: Coverage Notice Comment: [facility] [place], [place] [phone] Reviewer: DASHA Freeman Notice Issued Date-Time: 08/27/2018 8:15 Notice Type: Patient Choice Letter Notice Delivered To: Patient Relationship to Patient: Entertainment Production Professional Name: Delivery Method: HAND - Hand Delivered Lien Days: Prior Verbal Notification: Recipient Understood Notice: Yes Recipient Signature: Yes Med Rec Note Co-signed by Attending: Coverage Notice Comment: NO HOME HEALTH PROVIDER PREFERENCE Reviewer: DASHA Freeman Notice Issued Date-Time: 08/27/2018 8:15 Notice Type: IM Discharge Notice Notice Delivered To: Patient Relationship to Patient: Entertainment Production Professional Name: Delivery Method: HAND - Hand Delivered Lien Days: Prior Verbal Notification: Recipient Understood Notice: Yes Recipient Signature: Yes Med Rec Note Co-signed by Attending: Coverage Notice Comment: Last DP export: 08/27/18 1:08 p Patient Name: RICHARD SOUZA Page [id number] at 1710 All edits/amendments must be made on the electronic document DICTATION DATE: 08/27/181708 CRIMINAL LAWYER: DM 08/27/181708 RPT#: [id number] DC DATE: STATUS: ADM IN [facility] [address] [place] [address] END OF REPORT
--- NOTE | 2018-08-27 17:27 | NUR ---
IV AND TELEMETRY DCD. DC PLANS GIVEN. UNDERSTANDING VOICED. ESCORTED TO CAR BY W/C.
== END 2018-08-27 17:30 | disposition home health service (06) | DRG 280 ==
LOC: D.ER 12:03 → D.M2 13:51 → D.EDHOLD 13:51 → OBSVTIME 13:51 → D.M2 17:01
PROVIDERS: Emergency Medicine; Family Medicine; Internal Medicine Hematology & Oncology; Internal Medicine Interventional Cardiology; Internal Medicine Pulmonary Disease; ADMIT Emergency Medicine; ATTEND Emergency Medicine
PROC: 4A023N7 Measurement of Cardiac Sampling and Pressure, Left Heart, Percutaneous Approach (ICD-10-PCS; 2018-08-20)
PROC: B3151ZZ Fluoroscopy of Bilateral Common Carotid Arteries using Low Osmolar Contrast (ICD-10-PCS; 2018-08-20)
PROC: B3181ZZ Fluoroscopy of Bilateral Internal Carotid Arteries using Low Osmolar Contrast (ICD-10-PCS; 2018-08-20)
PROC: B31C1ZZ Fluoroscopy of Bilateral External Carotid Arteries using Low Osmolar Contrast (ICD-10-PCS; 2018-08-20)
PROC: B2111ZZ Fluoroscopy of Multiple Coronary Arteries using Low Osmolar Contrast (ICD-10-PCS; principal; 2018-08-20 09:35)
PROC: B2151ZZ Fluoroscopy of Left Heart using Low Osmolar Contrast (ICD-10-PCS; 2018-08-20 09:35)
DX: I21.4 Non-ST elevation (NSTEMI) myocardial infarction (principal); J96.01 Acute respiratory failure with hypoxia; I26.99 Other pulmonary embolism without acute cor pulmonale; Z68.41 Body mass index [BMI] 40.0-44.9, adult; I50.30 Unspecified diastolic (congestive) heart failure; I82.432 Acute embolism and thrombosis of left popliteal vein; I82.442 Acute embolism and thrombosis of left tibial vein; G45.3 Amaurosis fugax; G47.33 Obstructive sleep apnea (adult) (pediatric); E66.01 Morbid (severe) obesity due to excess calories; I27.20 Pulmonary hypertension, unspecified; E78.5 Hyperlipidemia, unspecified; K21.9 Gastro-esophageal reflux disease without esophagitis; F32.9 Major depressive disorder, single episode, unspecified; H10.9 Unspecified conjunctivitis; E55.9 Vitamin D deficiency, unspecified; I11.0 Hypertensive heart disease with heart failure; M47.819 Spondylosis without myelopathy or radiculopathy, site unspecified; Z78.0 Asymptomatic menopausal state

== ENCOUNTER → 2018-10-18 13:42 | Outpatient (CLI) | payer MEDICARE, OTHER ==
[2018-08-23 09:35] VITALS: BMI 45.9
[~2018-10-18 13:42] MED LIST changes: +BENTYL10 MG PO; +ELIQUIS5 MG PO; +GAS-X125 M1 PO; +MAG-OX 400 MG400 MG PO
== END | disposition home or self-care (01) ==
LOC: D.US 13:42
PROVIDERS: ATTEND Internal Medicine Pulmonary Disease
DX: I26.99 Other pulmonary embolism without acute cor pulmonale (principal)

== ENCOUNTER → 2019-01-07 13:33 | Outpatient (CLI) | payer MEDICARE, OTHER ==
[2018-08-23 09:35] VITALS: BMI 45.9
== END | disposition home or self-care (01) ==
LOC: D.RT 13:33
PROVIDERS: ATTEND Internal Medicine Pulmonary Disease
DX: I26.99 Other pulmonary embolism without acute cor pulmonale (principal)

== ENCOUNTER → 2019-02-28 10:55 | Outpatient (CLI) | payer MEDICARE, OTHER ==
[2018-08-23 09:35] VITALS: BMI 45.9
[2019-02-28 11:38] LABS: ALBUMIN 3.2 g/dL (3.4-5.0); BILIRUBIN - DIRECT 0.1 mg/dL (0.00-0.30); BILIRUBIN - INDIRECT 0.41 mg/dL (0.00-1.00); BILIRUBIN - TOTAL 0.51 mg/dL (0.2-1.3); PROTEIN - SERUM 6.9 g/dL (6.4-8.2)
== END | disposition home or self-care (01) ==
LOC: D.LAB 10:55
PROVIDERS: ATTEND Internal Medicine Pulmonary Disease
DX: I27.20 Pulmonary hypertension, unspecified (principal)

== ENCOUNTER → 2019-06-18 09:25 | Outpatient (CLI) | payer MEDICARE, OTHER ==
[2018-08-23 09:35] VITALS: BMI 45.9
== END | disposition home or self-care (01) ==
LOC: D.MRI 09:25
PROVIDERS: ATTEND Registered Nurse Emergency
DX: M48.061 Spinal stenosis, lumbar region without neurogenic claudication (principal); M48.04 Spinal stenosis, thoracic region; M48.02 Spinal stenosis, cervical region

== ENCOUNTER 2019-09-10 20:36 | Inpatient (IN) | payer MEDICARE, OTHER ==
[~2019-09-10] VITALS: Ht 165.1 cm; Wt 137.3 kg
[~2019-09-10 20:36] MED LIST changes: +VITAMIN D1000 UNIT PO; -VITAMIN D5000 UNIT PO
[2019-09-11] MEDS ORDERED: AVAPRO300 MG PO (00:02)
[2019-09-11] MEDS ORDERED: SINGULAIR10 MG PO (00:04)
[2019-09-11] MEDS ORDERED: SUPER B COMPLE1 EAC1 PO (00:09)
[2019-09-11] MEDS ORDERED: FERROUS SULFAT325 MG PO (00:13)
[2019-09-11] MEDS ORDERED: PRESERVISION PO (00:15)
[2019-09-11 21:13] VITALS: Ht 165.1 cm; Wt 137.3 kg
[2019-09-13] MEDS ORDERED: OMNICEF300 MG PO (12:23)
[2019-09-13 12:40] VITALS: BP 158/60
== END 2019-09-13 13:42 | disposition home or self-care (01) | DRG 683 ==
LOC: D.ER 20:36 → D.M2 22:42
PROVIDERS: ADMIT Family Medicine; ATTEND Family Medicine
DX: N17.9 Acute kidney failure, unspecified (principal); N39.0 Urinary tract infection, site not specified; I24.8 Other forms of acute ischemic heart disease; B96.89 Other specified bacterial agents as the cause of diseases classified elsewhere; D64.9 Anemia, unspecified; I10 Essential (primary) hypertension; Z86.711 Personal history of pulmonary embolism

== ENCOUNTER → 2019-11-07 09:30 | Outpatient (CLI) | payer MEDICARE, OTHER ==
[~2019-11-07 09:30] MED LIST changes: +AVAPRO300 MG PO; +FERROUS SULFAT325 MG PO; +OMNICEF300 MG PO; +PRESERVISION PO; +SINGULAIR10 MG PO; +SUPER B COMPLE1 EAC1 PO
== END | disposition home or self-care (01) ==
LOC: D.US 09:30
PROVIDERS: ATTEND Internal Medicine Gastroenterology
DX: R10.33 Periumbilical pain (principal); R11.0 Nausea

== ENCOUNTER → 2019-11-24 08:38 | Outpatient (CLI) | payer MEDICARE, OTHER | END | disposition home or self-care (01) | LOC: D.LAB 08:00 → D.MRI 09:00 | PROVIDERS: ATTEND Internal Medicine Gastroenterology | DX: K76.9 Liver disease, unspecified (principal); R93.89 Abnormal findings on diagnostic imaging of other specified body structures ==

== ENCOUNTER → 2020-06-04 09:20 | Outpatient (CLI) | payer MEDICARE, OTHER ==
[2020-05-03 17:38] VITALS: BMI 44.5
[~2020-06-04 09:20] MED LIST changes: +[UNRECOGNIZED DRUG - REMARK]
[2020-06-04 09:53] LABS: ANION GAP 11.2 mmol/L (8-16); CALCIUM 9.2 mg/dL (8.5-10.1); CREATININE - SERUM 1.4 mg/dL (0.6-1.3); POTASSIUM - SERUM 4.2 mmol/L (3.5-5.1)
== END | disposition home or self-care (01) ==
LOC: D.MRI 09:20
PROVIDERS: ATTEND Internal Medicine Gastroenterology
DX: R93.5 Abnormal findings on diagnostic imaging of other abdominal regions, including retroperitoneum (principal); K76.9 Liver disease, unspecified

== ENCOUNTER → 2020-06-21 11:52 | Outpatient (CLI) | payer MEDICARE, OTHER ==
[2020-05-03 17:38] VITALS: BMI 44.5
== END | disposition home or self-care (01) ==
LOC: D.LAB 11:51
PROVIDERS: ATTEND Internal Medicine Pulmonary Disease
DX: Z11.52 Encounter for screening for COVID-19 (principal)

== ENCOUNTER → 2020-06-25 08:03 | Outpatient (CLI) | payer MEDICARE, OTHER ==
[2020-05-03 17:38] VITALS: BMI 44.5
== END | disposition home or self-care (01) ==
LOC: D.RT 05-28 09:00
PROVIDERS: ATTEND Internal Medicine Pulmonary Disease
DX: J98.4 Other disorders of lung (principal); Z11.52 Encounter for screening for COVID-19